=== PATIENT | female | born 1995 | race Caucasian/White ===

== ENCOUNTER 2017-01-16 02:02 | Emergency (ER) | payer MEDICAID, OTHER, SELFPAY ==
[2017-01-16 02:14] VITALS: BP 117/76
[2017-01-16] MEDS ORDERED: Ibuprofen 800 MG Tab PO ONE (02:34)
[2017-01-16] MEDS ORDERED: Amoxicillin/Clavulanate K 500-125 MG Tab PO ONE (02:35)
[2017-01-16] MEDS ORDERED: Acetaminophen/oxyCODONE 325-5 MG Tab PO ONE (02:35)
--- NOTE | 2017-01-16 02:38 | EDM.PDOC ---
ED HPI ENT - General Chief Complaint: ENT Problem Stated Complaint: FEVER SORE THROAT Time Seen by Provider: 01/16/17 02:34 Source of Information: Reports: Patient, Family (spouse) History Limitations: Reports: No limitations - History of Present Illness INITIAL COMMENTS - FREE TEXT/NARRATIVE: 21-year-old female presents the ED with acute onset of high fever generalized myalgia and severe sore throat over the last 24 hours. Denies cough or sputum production. Does have a headache. No nasal congestion. Very painful to swallow. Still has her tonsils. Symptom Onset Date: 01/15/17 Timing/Duration: Reports: Sudden onset (Illness started over the last 24 hours.) Severity: moderate Location: Reports: right Ear, left Ear (With swallowing), throat Quality: Reports: Burning, Sharp, Stabbing Improves with: Reports: None Worsens with: Reports: Other (Swallowing.) Associated Symptoms: Reports: headaches, fever/chills, malaise, loss of appetite. 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: Musculoskeletal History: Reports: Other (see below) Other Musculoskeletal History: herniated disc - Past Surgical History Musculoskeletal Surgical History: Reports: Other (see below) Other Musculoskeletal Surgeries/Procedures:: fracture of right femur, jasvir placed Social & Family History - Tobacco Use Smoking Status *Q: Current Every Day Smoker Years of Tobacco use: 6 Packs/Tins Daily: 1 Used Tobacco, but Quit: Yes Month Tobacco Last Used: November 2014 Second Hand Smoke Exposure: Yes - Caffeine Use Caffeine Use: Reports: Soda - Alcohol Use Days Per Week of Alcohol Use: 0 - Recreational Drug Use Recreational Drug Use: No - Living Situation & Occupation Living situation: Reports: Occupation: unemployed ED ROS ENT - Review of Systems Review Of Systems: See Below Constitutional: Reports: fever, chills, malaise, weakness, fatigue, decreased appetite. Denies: weight loss HEENT: Reports: Throat pain, Throat swelling Respiratory: Reports: No Symptoms Cardiovascular: Reports: No symptoms Endocrine: Reports: fatigue GI/Abdominal: Reports: No symptoms : Reports: no symptoms Musculoskeletal: Reports: no symptoms Skin: Reports: no symptoms Neurological: Reports: No Symptoms Psychiatric: Reports: No symptoms ED EXAM, ENT - Physical Exam Exam: See Below Exam Limited By: No limitations General Appearance: alert, moderate distress (Appears ill. She is very warm to palpation.) Eye Exam: bilateral eye: normal inspection, PERRL Ears: normal TMs Mouth/Throat: Pharyngeal erythema, Tonsillar erythema, Tonsillar exudates, Tonsillar swelling Head: atraumatic, normocephalic Neck: normal inspection, supple, non-tender, full range of motion, lymphadenopathy (L) (Mild submandibular), lymphadenopathy (R) (Mild submandibular) Respiratory/Chest: no respiratory distress, lungs clear, normal breath sounds, no accessory muscle use Cardiovascular: normal peripheral pulses, no edema, no gallop, no murmur GI/Abdominal: normal bowel sounds, soft, non tender, no organomegaly Extremities: normal inspection, normal range of motion, non-tender, no pedal edema Psychiatric: normal affect, normal mood Skin: Warm, Dry, Intact, Normal color, No rash Course - Vital Signs Last Recorded V/S: Last Vital Signs Temp 36.7 C 01/16/17 02:48 Pulse 89 01/16/17 02:10 Resp 16 01/16/17 02:10 BP 117/76 01/16/17 02:10 Pulse Ox 95 01/16/17 02:10 - Orders/Labs/Meds Meds: Medications Discontinued Medications Generic Name Dose Route Start Last Admin Trade Name Freq PRN Reason Stop Dose Admin Amoxicillin/Clavulanate Potassium 1 tab 01/16/17 02:35 01/16/17 02:48 Augmentin 500 Mg\125 Mg PO 01/16/17 02:36 1 tab ONETIME ONE Administration Ibuprofen 800 mg 01/16/17 02:34 01/16/17 02:48 Motrin PO 01/16/17 02:35 800 mg ONETIME ONE Administration Oxycodone/Acetaminophen 1 tab 01/16/17 02:35 01/16/17 02:48 Percocet 325-5 Mg PO 01/16/17 02:36 1 tab ONETIME ONE Administration - Radiology Interpretation Free Text/Narrative:: 21-year-old female presents the ED with acute onset of high fever 102.2 with severe sore throat for the last 24 hours. Examination reveals bilateral follicular tonsillitis. Mild submandibular adenopathy bilaterally. Treated with Augmentin 500 mg twice daily for 8 days. In the ED she was given Percocet 5 325 one tablet with Motrin 800 mg per oral for fever and pain relief. She is to continue Motrin 600 mg every 6 hours as needed for fever and throat pain relief. Departure - Departure Time of Disposition: 02:35 Disposition: Home, Self-Care 01 Condition: fair Clinical Impression: Tonsillitis Prescriptions: Amoxicillin/Potassium Clav [Augmentin 500-125 Tablet] 1 each PO BID #16 tablet Instructions: Tonsillitis, [id number] Referrals: Lakisha May LENS ASSORTER [Primary Care Provider] - Forms: ED Department Discharge Additional Instructions: Evaluation in the emergency room this morning in regards to high fever and severe sore throat that developed over the last 24 hours. Examination reveals E. to be running a fever. Ears are normal. Oropharynx shows tonsillitis with redness and swelling of both tonsils. Back of throat is also infected. Treated with Motrin 800 mg by mouth and one Percocet 5 325 mg tablet for pain relief and fever relief. Antibiotic is to be Augmentin 500 mg twice daily for the next 8 days with the first tablet provided in the ED. Continue ibuprofen or Motrin 600 mg every 6 hours for fever and throat pain relief. Expect improvement from antibiotic the next 36 hours. Plenty of fluids and diet as able.
== END 2017-01-16 02:57 | disposition home or self-care (01) ==
LOC: JD.ED 02:02
DX: J03.90 Acute tonsillitis, unspecified (principal); F17.210 Nicotine dependence, cigarettes, uncomplicated; Z98.890 Other specified postprocedural states
CPT/HCPCS: 99283; A9270

== ENCOUNTER 2017-01-18 08:22 | Emergency (ER) | payer MEDICAID, OTHER, SELFPAY ==
[2017-01-18 08:32] VITALS: BP 137/94
--- NOTE | 2017-01-18 08:37 | EDM.PDOC ---
ED HPI ENT - General Chief Complaint: ENT Problem Stated Complaint: SORE THROAT NOT BETTER Time Seen by Provider: 01/18/17 08:32 Source of Information: Reports: Patient History Limitations: Reports: No limitations - History of Present Illness INITIAL COMMENTS - FREE TEXT/NARRATIVE: 21-year-old female presents to the ED once again for review of sore throat and trouble swallowing. I had seen her to the ED tonight's ago and prescribed Augmentin 500 mg twice daily for 8 days. She did get the first tablet while she was in the emergency room. Diagnosed at that time was pharyngitis and tonsillitis. She reports that that's the only tablet she got. She was not able to afford the medication and is yet to poultry picker the prescription. She is still running a fever. Feeling worse instead of better of course. Feeling weak and dizzy. She also states her eyes are becoming mucousy and Sunday and requested shut this morning. She ended up going to the shower to get him to open up. Occurred over the last 12 hours. Symptom Onset Date: 01/18/17 Symptom Onset Time: 08:40 Timing/Duration: Reports: Day(s):, Gradual onset Severity: severe Location: Reports: throat Quality: Reports: Ache, Burning, Same as previous episode Improves with: Reports: None (Motrin helps a bit.) Worsens with: Reports: Other (Swallowing.) Associated Symptoms: Reports: malaise, other (Mild cough). Denies: headaches, seizure, shortness of breath, syncope, weakness, chest pain, cough, sputum, fever/chills, diaphoresis, loss of appetite, nausea/vomiting, rash Treatments MYCOLOGIST: Reports: NSAIDS (Motrin) - Related Data Allergies/ADRs: Allergies Allergy/AdvReac Type Severity Reaction Status Date / Time No Known Allergies Allergy Verified 01/18/17 08:31 Home Meds: Home Meds . 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: Musculoskeletal History: Reports: Other (see below) Other Musculoskeletal History: herniated disc - Past Surgical History Musculoskeletal Surgical History: Reports: Other (see below) Other Musculoskeletal Surgeries/Procedures:: fracture of right femur, jasvir placed Social & Family History - Tobacco Use Smoking Status *Q: Current Every Day Smoker Years of Tobacco use: 6 Packs/Tins Daily: 1 Used Tobacco, but Quit: Yes Month Tobacco Last Used: November 2014 Second Hand Smoke Exposure: Yes - Caffeine Use Caffeine Use: Reports: Soda - Alcohol Use Days Per Week of Alcohol Use: 0 - Recreational Drug Use Recreational Drug Use: No - Living Situation & Occupation Living situation: Reports: Occupation: unemployed ED ROS ENT - Review of Systems Review Of Systems: See Below Constitutional: Reports: fever, chills, malaise, weakness, fatigue, decreased appetite. Denies: weight loss HEENT: Reports: Eye discharge, Throat pain, Throat swelling Respiratory: Denies: Shortness of Breath, Wheezing, Pleuritic Chest Pain Cardiovascular: Reports: No symptoms Endocrine: Reports: no symptoms GI/Abdominal: Reports: No symptoms : Reports: no symptoms Musculoskeletal: Reports: no symptoms Skin: Reports: no symptoms Neurological: Reports: No Symptoms Psychiatric: Reports: No symptoms Hematologic/Lymphatic: Reports: no symptoms ED EXAM, ENT - Physical Exam Exam: See Below Exam Limited By: No limitations General Appearance: alert, WD/WN, moderate distress (Appears ill and is warm to palpation.) Eye Exam: bilateral eye: conjunctival injection (Moderate bilaterally with marked inflammation of the lower peripheral margins.) Ears: normal TMs Mouth/Throat: Pharyngeal erythema, Tonsillar erythema, Tonsillar swelling. No: Tonsillar exudates Head: atraumatic, normocephalic Neck: normal inspection, supple, non-tender, full range of motion, lymphadenopathy (L) (Moderate), lymphadenopathy (R) Respiratory/Chest: no respiratory distress (Minimum), lungs clear, normal breath sounds, no accessory muscle use Cardiovascular: normal peripheral pulses, regular rate, rhythm, no edema, no murmur GI/Abdominal: normal bowel sounds, soft, non tender, no organomegaly Extremities: normal inspection, normal range of motion, non-tender, no pedal edema Neurological: alert, oriented, CN II-XII intact, normal cognition, normal gait Psychiatric: normal affect, normal mood Skin: Warm, Dry, Intact, Normal color, No rash Course - Vital Signs Last Recorded V/S: Last Vital Signs Temp 36.9 C 01/18/17 08:27 Pulse 63 01/18/17 08:27 Resp 18 01/18/17 08:27 BP 137/94 H 01/18/17 08:27 Pulse Ox 99 01/18/17 08:27 - Orders/Labs/Meds Orders: Active Orders 24 hr Category Date Time Status CULTURE STREP A CONFIRMATION [RM] Stat Lab 01/18/17 08:35 Results Rapid Strep w/culture conf [STREP SCRN A RAPID W CULT Lab 01/18/17 08:35 Results CONF] [RM] Stat Dextrose 5%-0.9% NaCl [Dextrose 5%-Normal Saline] 1,000 Med 01/18/17 08:45 Active ml IV ASDIRECTED Ketorolac [Toradol] Med 01/18/17 09:00 Active 30 mg IVPUSH ONETIME cefTRIAXone [Rocephin] 2 gm Med 01/18/17 08:45 Active Sodium Chloride 0.9% [Normal Saline] 100 ml IV Q24H Medication Orders Dextrose/Sodium Chloride (Dextrose 5%-Normal Saline) 1,000 mls @ 999 mls/hr IV ASDIRECTED PAULA Last Infusion: 01/18/17 09:27 Dose: 999 mls/hr Admin: 01/18/17 09:02 Dose: 500 mls/hr Ceftriaxone Sodium 2 gm/ (Sodium Chloride) 100 mls @ 200 mls/hr IV Q24H PAULA Last Admin: 01/18/17 09:03 Dose: 200 mls/hr Ketorolac Tromethamine (Toradol) 30 mg IVPUSH ONETIME PAULA Last Admin: 01/18/17 09:06 Dose: 30 mg Labs: Laboratory Tests 01/18/17 01/18/17 01/18/17 Range/Units 08:50 08:50 08:50 WBC 14.48 H (3.98-10.04) K/mm3 RBC 5.38 H (3.98-5.22) M/mm3 Hgb 15.2 (11.2-15.7) gm/L Hct 45.3 H (34.1-44.9) % MCV 84.2 (79.4-94.8) fl MCH 28.3 (25.6-32.2) pg MCHC 33.6 (32.2-35.5) g/dl RDW Std Deviation 41.6 (36.4-46.3) fL Plt Count 256 (182-369) K/mm3 MPV 10.8 (9.4-12.3) fl Neutrophils % (Manual) 68 H (40-60) % Band Neutrophils % 0 (0-10) % Lymphocytes % (Manual) 29 (20-40) % Atypical Lymphs % 0 % Monocytes % (Manual) 1 L (2-10) % Eosinophils % (Manual) 2 (0.7-5.8) % Basophils % (Manual) 0 L (0.1-1.2) Platelet Estimate Adequate RBC Morph Comment Normal Sodium 141 (136-145) mEq/L Potassium 4.0 (3.5-5.1) mEq/L Chloride 106 (98-107) mEq/L Carbon Dioxide 25 (21-32) mEq/L Anion Gap 14.0 (5-15) BUN 11 (7-18) mg/dL Creatinine 0.9 (0.55-1.02) mg/dL Est Cr Clr Drug Dosing TNP Estimated GFR (MDRD) > 60 (>60) mL/min BUN/Creatinine Ratio 12.2 L (14-18) Glucose 104 (74-106) mg/dL Calcium 8.8 (8.5-10.1) mg/dL Total Bilirubin 0.6 (0.2-1.0) mg/dL AST 13 L (15-37) U/L ALT 20 (14-59) U/L Alkaline Phosphatase 106 (46-116) U/L C-Reactive Protein 5.5 H* (<1.0) mg/dL Total Protein 7.6 (6.4-8.2) g/dl Albumin 3.6 (3.4-5.0) g/dl Globulin 4.0 gm/dL Albumin/Globulin Ratio 0.9 L (1-2) Meds: Medications Generic Name Dose Route Start Last Admin Trade Name Freq PRN Reason Stop Dose Admin Dextrose/Sodium Chloride 1,000 mls @ 999 mls/hr 01/18/17 08:45 01/18/17 09:27 Dextrose 5%-Normal Saline IV 999 mls/hr ASDIRECTED PAULA Infusion Ceftriaxone Sodium 2 gm/ 100 mls @ 200 mls/hr 01/18/17 08:45 01/18/17 09:03 Sodium Chloride IV 200 mls/hr Q24H PAULA Administration Ketorolac Tromethamine 30 mg 01/18/17 09:00 01/18/17 09:06 Toradol IVPUSH 30 mg ONETIME PAULA Administration Discontinued Medications Generic Name Dose Route Start Last Admin Trade Name Freq PRN Reason Stop Dose Admin Gentamicin Sulfate 5 ml 01/18/17 09:03 01/18/17 09:25 Garamycin 0.3% Ophth Soln EYEBOTH 01/18/17 09:04 1 dose ONETIME ONE Administration Hydromorphone HCl 0.5 mg 01/18/17 08:49 Dilaudid IVPUSH 01/18/17 08:50 ONETIME ONE Ondansetron HCl 4 mg 01/18/17 08:50 01/18/17 09:08 Zofran IVPUSH 01/18/17 08:51 4 mg ONETIME ONE Administration - Radiology Interpretation Free Text/Narrative:: 21-year-old female presents to the ED once again for review of sore throat that developed about 3 days ago. I had seen her through the ED 2 days ago and diagnosed with tonsillitis. She had been started on augment Augmentin 500 mg tablet which we gave her the ED. However she reports this was unable to poultry picker the prescription since that time. She does of course is not getting better. Associated bacterial conjunctivitis. Will start her on gentamicin eyedrops 2 drops to each eye 4 times daily for 3 days. Plan will be to have routine lab work done in the ED rapid strep Monospot given 2 g of Rocephin intravenously CBC CMP. - Re-Assessments/Exams Free Text/Narrative Re-Assessment/Exam: 01/18/17 09:33 total white count is 14.48 with differential pending. Hemoglobin is 15.2 hematocrit 45.3, platelets are 256,000. Chemistry was completely normal. Rapid strep was negative but it might be negative because of antibiotics previously taken antibiotics. Will await the differential. 01/18/17 09:46 CRP came back at 5.5. Patient has a prescription for the Augmentin tablets 500 twice a day for 8 days which are prescribed 2 days ago and she will fill this tomorrow apparently gets paid tomorrow the available film medication. Departure - Departure Time of Disposition: 09:43 Disposition: Home, Self-Care 01 Clinical Impression: Tonsillitis, Bacterial conjunctivitis of both eyes Instructions: Tonsillitis, Bacterial Conjunctivitis Referrals: Lakisha May HOSPITALIST MEDICAL DIRECTOR [Primary Care Provider] - Forms: ED Department Discharge Additional Instructions: Evaluation in the emergency department today in regards to persistent upper respiratory tract symptoms due to inability to fill prescription for antibiotic medication provided 2 days ago. Laboratory did reveal a markedly elevated white count at 14,450 with bacterial infection. Your liver treated in the emergency room for infection with Rocephin 2 g given intravenously which will last for the next 24 hours. By history we'll be able to poultry picker her prescription for Augmentin 500 mg tablets twice daily tomorrow. Continue Motrin 600 mg every 6 hours for fever and pain relief. Also identified bacterial conjunctivitis in both eyes. He is gentamicin eyedrops applied to the ED today 2 drops each eye 4 times daily while awake for the next 3 days to clear up infection. - My Orders Last 24 Hours: My Active Orders 01/18/17 08:35 CULTURE STREP A CONFIRMATION [] Stat Rapid Strep w/culture conf [STREP SCRN A RAPID W CULT CONF] [] Stat 01/18/17 08:45 Dextrose 5%-0.9% NaCl [Dextrose 5%-Normal Saline] 1,000 ml IV ASDIRECTED cefTRIAXone [Rocephin] 2 gm Sodium Chloride 0.9% [Normal Saline] 100 ml IV Q24H 01/18/17 09:00 Ketorolac [Toradol] 30 mg IVPUSH ONETIME - Assessment/Plan Last 24 Hours: My Active Orders 01/18/17 08:35 CULTURE STREP A CONFIRMATION [] Stat Rapid Strep w/culture conf [STREP SCRN A RAPID W CULT CONF] [] Stat 01/18/17 08:45 Dextrose 5%-0.9% NaCl [Dextrose 5%-Normal Saline] 1,000 ml IV ASDIRECTED cefTRIAXone [Rocephin] 2 gm Sodium Chloride 0.9% [Normal Saline] 100 ml IV Q24H 01/18/17 09:00 Ketorolac [Toradol] 30 mg IVPUSH ONETIME
[2017-01-18] MEDS ORDERED: Dextrose 5%-0.9% NaCl 1,000 ML IV SCH (08:45)
[2017-01-18] MEDS ORDERED: cefTRIAXone 2 GM in Sodium Chloride 0.9% 100 ML IV SCH (08:45)
[2017-01-18] MEDS ORDERED: HYDROmorphone 0.5 MG/0.5 ML Syringe IVPUSH ONE (08:49)
[2017-01-18] MEDS ORDERED: Ondansetron 4 MG/2 ML SDV IVPUSH ONE (08:50)
[2017-01-18] MEDS ORDERED: Ketorolac 30 MG/ML SDV IVPUSH SCH (09:00)
[2017-01-18] MEDS ORDERED: Gentamicin 0.3% Ophth Soln 15 ML Bottle EYEBOTH ONE (09:03)
== END 2017-01-18 10:00 | disposition home or self-care (01) ==
LOC: JD.ED 08:22
DX: J03.90 Acute tonsillitis, unspecified (principal); H10.89 Other conjunctivitis; F17.210 Nicotine dependence, cigarettes, uncomplicated; Z98.890 Other specified postprocedural states
CPT/HCPCS: 36415; 80053; 85025; 86140; 87081; 87430; 96365; 96375; 99283; A9270; J0696; J1885; J2405; J7030; J7042; 99284

== ENCOUNTER 2017-05-10 12:45 | Emergency (ER) | payer SELFPAY ==
[2017-05-10 12:56] VITALS: BP 134/75
--- NOTE | 2017-05-10 13:19 | EDM.PDOC ---
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 She reports that her periods are usually regular and come on the 18th or 19th of every month. She says for the past two months her and her significant other have been trying to conceive. Her periods have now become irregular. She had her period around 04/03 but then had bleeding again around 2 weeks later. Her period starting this morning and she is 6 days late. She is wondering if she could be but has not taken a test because she feels it's too early. She had pelvic cramping prior to onset of bleeding. She took Tylenol prior to arrival. No fever, chills, sweats, or urinary symptoms. Abdomen Pain Score (Numeric/FACES): 4 - Related Data Allergies Allergy/AdvReac Type Severity Reaction Status Date / Time No Known Allergies Allergy Verified 05/10/17 12:55 Home Meds: Home Meds . 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: Musculoskeletal History: Reports: Other (See Below) Other Musculoskeletal History: herniated disc - Past Surgical History Musculoskeletal Surgical History: Reports: Other (See Below) Social & Family History - Family History Family Medical History: Noncontributory - Tobacco Use Smoking Status *Q: Never Smoker Years of Tobacco use: 6 Packs/Tins Daily: 1 Used Tobacco, but Quit: Yes Month Tobacco Last Used: November 2014 Second Hand Smoke Exposure: Yes - Caffeine Use Caffeine Use: Reports: Soda - Alcohol Use Days Per Week of Alcohol Use: 0 - Recreational Drug Use Recreational Drug Use: No - Living Situation & Occupation Living situation: Reports: Occupation: Unemployed ED ROS GENERAL - Review of Systems Review Of Systems: See Below Constitutional: Reports: No Symptoms. Denies: Fever, Chills, Diaphoresis Respiratory: Reports: No Symptoms. Denies: Shortness of Breath Cardiovascular: Reports: No Symptoms. Denies: Chest Pain GI/Abdominal: Reports: No Symptoms. Denies: Nausea, Vomiting : Reports: Irregular Menses. Denies: Flank Pain, Pain, Urgency ED EXAM, RENAL/ - Physical Exam Exam: See Below Exam Limited By: No Limitations General Appearance: Alert, No Apparent Distress, Obese Respiratory/Chest: No Respiratory Distress, Lungs Clear, Normal Breath Sounds Cardiovascular: Regular Rate, Rhythm GI/Abdominal: Normal Bowel Sounds, Soft, Non-Tender (Female) Exam: Other (no pelvic tenderness on palpation. no rebound rigidity , or guarding. speculum and bimanual exam deferred ) Back Exam: Normal Inspection, Full Range of Motion. No: CVA Tenderness (L), CVA Tenderness (R) Course - Vital Signs Last Recorded V/S: Last Vital Signs Temp 98.8 F 05/10/17 12:53 Pulse 75 05/10/17 12:53 Resp 18 05/10/17 12:53 BP 134/75 05/10/17 12:53 Pulse Ox 100 05/10/17 12:53 - Orders/Labs/Meds Labs: Laboratory Tests 05/10/17 Range/Units 13:25 Urine HCG, Qual Negative (NEGATIVE) - Re-Assessments/Exams Free Text/Narrative Re-Assessment/Exam: Hcg is negative. Will refer to Poly Cummings for irregular periods. Departure - Departure Time of Disposition: 14:12 Disposition: Home, Self-Care 01 Condition: Good Clinical Impression: Irregular periods - Discharge Information Referrals: Poly Cummings, LOGISTICS ASSOCIATE [Nurse Practitioner] - Forms: ED Department Discharge Additional Instructions: Your test today was negative. Call the clinic to schedule an appointment with Dr. Harmon or his Nurse Practitioner Poly Cummings regarding your irregular periods. Return to ER as needed
== END 2017-05-10 14:23 | disposition home or self-care (01) ==
LOC: JD.ED 12:45
DX: N92.6 Irregular menstruation, unspecified (principal)
CPT/HCPCS: 81025; 99282; 99284

== ENCOUNTER 2018-02-06 18:45 | Emergency (ER) | payer BC | END 2018-02-06 18:59 | disposition left against medical advice (07) | LOC: JD.ED 18:45 | DX: Z53.21 Procedure and treatment not carried out due to patient leaving prior to being seen by health care provider (principal) ==

== ENCOUNTER 2018-04-30 15:22 | Emergency (ER) | payer BC ==
[2018-04-30 15:35] VITALS: BP 174/90
[2018-04-30] MEDS ORDERED: Acetaminophen 325 MG Tab PO ONE (16:43)
--- NOTE | 2018-04-30 17:35 | EDM.PDOC ---
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 Patient reports she is 5 weeks . Last menstrual period was March 28, 2018. She states her have been trying to become . She is currently on Clomid for infertility and is supposed to start with sounds like progesterone twice a day when she has been found to be . She saw Dr. Faustino evans yesterday and had hCG drawn. Review of records show that her hCG yesterday was 8. She reports today she first appreciated some pinkness when she wiped. She states it has gotten worse throughout the day and she is appreciated bleeding. She has not utilized a pad for the bleeding. She states she is not passing clots. She denies any lightheadedness, dizziness, syncope, dysuria or any back pain. She reports some lower abdominal cramping which she states feels like menstrual cramps. She also reports a headache and strong urine odor. Review of records show her blood type is O+. 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: Musculoskeletal History: Reports: Other (See Below) Other Musculoskeletal History: herniated disc - Past Surgical History Musculoskeletal Surgical History: Reports: Other (See Below) Social & Family History - Family History Family Medical History: Noncontributory - Tobacco Use Smoking Status *Q: Current Every Day Smoker Years of Tobacco use: 5 Packs/Tins Daily: 0.5 - Caffeine Use Caffeine Use: Reports: Soda - Recreational Drug Use Recreational Drug Use: No - Living Situation & Occupation Living situation: Reports: Occupation: Unemployed ED ROS GENERAL - Review of Systems Review Of Systems: See Below Cardiovascular: Denies: Lightheadedness GI/Abdominal: Reports: Abdominal Pain (lower abdominal pain and cramping) : Reports: Other (reports strong urine odor). Denies: Dysuria Musculoskeletal: Denies: Back Pain Neurological: Reports: Headache. Denies: Dizziness, Syncope ED EXAM - Physical Exam Exam: See Below Exam Limited By: No Limitations General Appearance: Alert, WD/WN, No Apparent Distress, Obese Respiratory/Chest: No Respiratory Distress, Lungs Clear, Normal Breath Sounds Cardiovascular: Normal Peripheral Pulses, Regular Rate, Rhythm, No Murmur GI/Abdominal Exam: Normal Bowel Sounds, Soft, Non-Tender Neurological: Alert, Oriented, Normal Cognition Psychiatric: Normal Affect, Normal Mood Skin Exam: Warm, Dry, Normal Color Course - Vital Signs Last Recorded V/S: Last Vital Signs Temp 97.3 F 04/30/18 15:31 Pulse 65 04/30/18 15:31 Resp 16 04/30/18 15:31 BP 174/90 H 04/30/18 15:31 Pulse Ox 99 04/30/18 15:31 - Orders/Labs/Meds Orders: Active Orders 24 hr Category Date Time Status CULTURE URINE [RM] Stat Lab 04/30/18 16:25 Received UA W/MICROSCOPIC [URIN] Stat Lab 04/30/18 16:25 Ordered Labs: Laboratory Tests 04/30/18 04/30/18 04/30/18 Range/Units 16:07 16:07 16:25 WBC 10.63 H (3.98-10.04) K/mm3 RBC 5.03 (3.98-5.22) M/mm3 Hgb 14.6 (11.2-15.7) gm/L Hct 43.2 (34.1-44.9) % MCV 85.9 (79.4-94.8) fl MCH 29.0 (25.6-32.2) pg MCHC 33.8 (32.2-35.5) g/dl RDW Std Deviation 41.5 (36.4-46.3) fL Plt Count 266 (182-369) K/mm3 MPV 10.1 (9.4-12.3) fl Neut % (Auto) 62.6 (34.0-71.1) % Lymph % (Auto) 28.3 (19.3-51.7) % Levy % (Auto) 7.1 (4.7-12.5) % Eos % (Auto) 1.3 (0.7-5.8) Baso % (Auto) 0.4 (0.1-1.2) % Neut # (Auto) 6.66 H (1.56-6.13) K/mm3 Lymph # (Auto) 3.01 (1.18-3.74) K/mm3 Levy # (Auto) 0.75 H (0.24-0.36) K/mm3 Eos # (Auto) 0.14 (0.04-0.36) K/mm3 Baso # (Auto) 0.04 (0.01-0.08) K/mm3 HCG, Quant 14.0 mIU/mL Urine Color Lotus H (Yellow) Urine Appearance Cloudy H (Clear) Urine pH 6.0 (5.0-8.0) Ur Specific [place] > or = 1.030 (1.005-1.030) Urine Protein 2+ H (Negative) Urine Glucose (UA) Negative (Negative) Urine Ketones Negative (Negative) Urine Occult Blood 3+ H (Negative) Urine Nitrite Negative (Negative) Urine Bilirubin Negative (Negative) Urine Urobilinogen 0.2 (0.2-1.0) Ur Leukocyte Esterase 1+ H (Negative) Urine RBC >100 H (0-5) /hpf Urine WBC 5-10 H (0-5) /hpf Ur Epithelial Cells 5-10 H (0-5) /hpf Urine Bacteria Moderate H (FEW) /hpf Urine Mucus Not seen (FEW) /hpf Meds: Medications Discontinued Medications Generic Name Dose Route Start Last Admin Trade Name Morisq PRN Reason Stop Dose Admin Acetaminophen 975 mg 04/30/18 16:43 04/30/18 17:00 Tylenol PO 04/30/18 16:44 975 mg NOW ONE Administration - Re-Assessments/Exams Free Text/Narrative Re-Assessment/Exam: 04/30/18 17:31 Reviewed the labs with the patient. She is blood type O+. Her Quant has increased from 8 yesterday to 14 today. At this point I am recommending that she continue as if she is as her Quant is increasing. To early to see anything on ultrasound. Will treat for UTI as she does have 1+ leuks and moderate bacteria seen on microscopy. Recommend follow-up with Dr. Harmon this week. Discharge instructions as documented. Departure - Departure Time of Disposition: 17:32 Disposition: Home, Self-Care 01 Condition: Fair Clinical Impression: UTI, Urinary tract infectious disease, Bleeding in early - Discharge Information *PRESCRIPTION DRUG MONITORING PROGRAM REVIEWED*: No *COPY OF PRESCRIPTION DRUG MONITORING REPORT IN PATIENT AGUUST: No Prescriptions: Cephalexin [Keflex] 500 mg PO BID #10 capsule Instructions: First Trimester of , Ngwi-wo-Xirp, Urinary Tract Infection, Adult, Opry-um-Envi Referrals: Sb Harmon MD [Primary Care Provider] - Forms: ED Department Discharge Additional Instructions: your HCG Quant has increased from 8 yesterday to 14 today. Recommend that you continue taking prenatals and avoid NSAIDs and alcohol. May take Tylenol as needed for discomfort. make Sure you're drinking plenty of fluids. Take the Keflex 1 tab twice a day for 5 days Pelvic rest. No intercourse until cleared by Dr. Harmon. Follow-up with Dr. Harmon this week. Please return to the ED if your symptoms change or worsen. - My Orders Last 24 Hours: My Active Orders 04/30/18 16:25 CULTURE URINE [RM] Stat UA W/MICROSCOPIC [URIN] Stat - Assessment/Plan Last 24 Hours: My Active Orders 04/30/18 16:25 CULTURE URINE [RM] Stat UA W/MICROSCOPIC [URIN] Stat
== END 2018-04-30 17:50 | disposition home or self-care (01) ==
LOC: JD.ED 15:22
DX: O20.9 Hemorrhage in early pregnancy, unspecified (principal); O23.41 Unspecified infection of urinary tract in pregnancy, first trimester; O99.331 Smoking (tobacco) complicating pregnancy, first trimester; F17.210 Nicotine dependence, cigarettes, uncomplicated; Z3A.01 Less than 8 weeks gestation of pregnancy
CPT/HCPCS: 36415; 81001; 84702; 85025; 87086; 87088; 87186; 99284; A9270; 99283

== ENCOUNTER 2018-05-01 13:15 | Emergency (ER) | payer BC ==
[2018-05-01] MEDS ORDERED: HYDROmorphone 0.5 MG/0.5 ML SYRINGE IVPUSH ONE ×2 (14:04→16:04)
[2018-05-01] MEDS ORDERED: Sodium Chloride 0.9% 10 ML Syringe FLUSH PRN (14:04)
[2018-05-01] MEDS ORDERED: Ondansetron 4 MG/2 ML SDV IVPUSH ONE (14:04)
[2018-05-01] MEDS ORDERED: Sodium Chloride 0.9% 1,000 ML IV ONE (14:04)
--- NOTE | 2018-05-01 14:16 | EDM.PDOC ---
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 She states she's approximately 5 weeks which was recently diagnosed this past Sunday. She was seen in the ED yesterday due to vaginal bleeding. She was diagnosed with the UTI. Placed on Keflex. Today she awoke with increased bleeding and cramps. This occurred at 7:30 this morning. Patient has been using washcloths and notes there has been heavy amount of blood to the washcloths but are not saturated. She notes every time she stands up there is a gush of blood. No tissue noted. She states it is similar to her menstrual cycle. Her last menstrual cycle was March 28. This is her second . She has 1 child. Her primary FOLEY ARTIST provider is Dr. Harmon. There is no fever no chills. She has slight nausea. No shortness of breath, chest pain, diarrhea, blood in her stool, or dysuria. She has been taking the Keflex as prescribed. She does smoke half pack per day. No alcohol or recreational drug use. She is only on vitamins. 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: Musculoskeletal History: Reports: Other (See Below) Other Musculoskeletal History: herniated disc - Past Surgical History Musculoskeletal Surgical History: Reports: Other (See Below) Social & Family History - Family History Family Medical History: Noncontributory - Tobacco Use Smoking Status *Q: Current Every Day Smoker Years of Tobacco use: 7 Packs/Tins Daily: 0.5 - Caffeine Use Caffeine Use: Reports: Soda - Recreational Drug Use Recreational Drug Use: No - Living Situation & Occupation Living situation: Reports: Occupation: Unemployed ED ROS GENERAL - Review of Systems Review Of Systems: See Below Constitutional: Reports: No Symptoms Respiratory: Reports: No Symptoms Cardiovascular: Reports: No Symptoms GI/Abdominal: Reports: No Symptoms : Reports: No Symptoms Musculoskeletal: Reports: No Symptoms Skin: Reports: No Symptoms Neurological: Reports: No Symptoms ED EXAM - Physical Exam Exam: See Below Exam Limited By: No Limitations General Appearance: Alert, WD/WN, No Apparent Distress Ears: Hearing Grossly Normal Nose: Normal Inspection Throat/Mouth: Normal Inspection, Normal Oropharynx, Normal Voice, No Airway Compromise Neck: Normal Inspection, Supple Respiratory/Chest: No Respiratory Distress, Lungs Clear, Normal Breath Sounds, No Accessory Muscle Use Cardiovascular: Normal Peripheral Pulses, Regular Rate, Rhythm GI/Abdominal Exam: Normal Bowel Sounds, Soft, Non-Tender, No Organomegaly, No Distention (Female) Exam: Normal Bimanual Exam, Cervical Dilatation (appears to be minimal open. ), Cervical Discharge (blood), Cervical Fluid, Vaginal Bleeding. No: Cervical Lesions, Cervix Motion Tenderness, Products of Conception, Tissue Present in Cervix/Vagina, Vaginal Discharge, Vaginal Lesions, Vaginal Tears Back Exam: Normal Inspection Extremities: Normal Inspection Neurological: Alert, Oriented, CN II-XII Intact, Normal Cognition, No Motor/ Sensory Deficits Psychiatric: Normal Affect, Normal Mood Skin Exam: Warm, Dry, Intact, Normal Color Course - Vital Signs Last Recorded V/S: Last Vital Signs Temp 97.5 F 05/01/18 13:37 Pulse 63 05/01/18 16:20 Resp 17 05/01/18 16:20 BP 121/79 05/01/18 16:20 Pulse Ox 98 05/01/18 16:20 - Orders/Labs/Meds Orders: Active Orders 24 hr Category Date Time Status Peripheral IV Care [RC] . DIRECTED Care 05/01/18 14:04 Active CULTURE URINE [RM] Stat Lab 05/01/18 14:16 Results Peripheral IV Insertion Adult [OM.PC] Routine Oth 05/01/18 14:04 Ordered Labs: Laboratory Tests 05/01/18 05/01/18 05/01/18 Range/Units 14:21 14:38 14:38 WBC 11.07 H (3.98-10.04) K/mm3 RBC 5.44 H (3.98-5.22) M/mm3 Hgb 15.6 (11.2-15.7) gm/L Hct 46.2 H (34.1-44.9) % MCV 84.9 (79.4-94.8) fl MCH 28.7 (25.6-32.2) pg MCHC 33.8 (32.2-35.5) g/dl RDW Std Deviation 41.4 (36.4-46.3) fL Plt Count 284 (182-369) K/mm3 MPV 10.4 (9.4-12.3) fl Neutrophils % (Manual) 74 H (40-60) % Band Neutrophils % 0 (0-10) % Lymphocytes % (Manual) 23 (20-40) % Atypical Lymphs % 0 % Monocytes % (Manual) 3 (2-10) % Eosinophils % (Manual) 0 L (0.7-5.8) % Basophils % (Manual) 0 L (0.1-1.2) Platelet Estimate Adequate RBC Morph Comment Normal Sodium 141 (136-145) mEq/L Potassium 3.8 (3.5-5.1) mEq/L Chloride 107 (98-107) mEq/L Carbon Dioxide 23 (21-32) mEq/L Anion Gap 14.8 (5-15) BUN 10 (7-18) mg/dL Creatinine 0.8 (0.55-1.02) mg/dL Est Cr Clr Drug Dosing 115.28 mL/min Estimated GFR (MDRD) > 60 (>60) mL/min BUN/Creatinine Ratio 12.5 L (14-18) Glucose 109 H (74-106) mg/dL Calcium 8.6 (8.5-10.1) mg/dL Total Bilirubin 0.4 (0.2-1.0) mg/dL AST 12 L (15-37) U/L ALT 18 (14-59) U/L Alkaline Phosphatase 88 (46-116) U/L C-Reactive Protein 1.1 H* (<1.0) mg/dL Total Protein 7.4 (6.4-8.2) g/dl Albumin 3.6 (3.4-5.0) g/dl Globulin 3.8 gm/dL Albumin/Globulin Ratio 1.0 (1-2) HCG, Quant mIU/mL Urine Color Yellow (Yellow) Urine Appearance Clear (Clear) Urine pH 6.0 (5.0-8.0) Ur Specific [place] 1.025 (1.005-1.030) Urine Protein Negative (Negative) Urine Glucose (UA) Negative (Negative) Urine Ketones Negative (Negative) Urine Occult Blood Negative (Negative) Urine Nitrite Negative (Negative) Urine Bilirubin Negative (Negative) Urine Urobilinogen 0.2 (0.2-1.0) Ur Leukocyte Esterase Trace H (Negative) Urine RBC 0-5 (0-5) /hpf Urine WBC 5-10 H (0-5) /hpf Ur Epithelial Cells 0-5 (0-5) /hpf Urine Bacteria Rare (FEW) /hpf Urine Mucus Not seen (FEW) /hpf 05/01/18 Range/Units 14:38 WBC (3.98-10.04) K/mm3 RBC (3.98-5.22) M/mm3 Hgb (11.2-15.7) gm/L Hct (34.1-44.9) % MCV (79.4-94.8) fl MCH (25.6-32.2) pg MCHC (32.2-35.5) g/dl RDW Std Deviation (36.4-46.3) fL Plt Count (182-369) K/mm3 MPV (9.4-12.3) fl Neutrophils % (Manual) (40-60) % Band Neutrophils % (0-10) % Lymphocytes % (Manual) (20-40) % Atypical Lymphs % % Monocytes % (Manual) (2-10) % Eosinophils % (Manual) (0.7-5.8) % Basophils % (Manual) (0.1-1.2) Platelet Estimate RBC Morph Comment Sodium (136-145) mEq/L Potassium (3.5-5.1) mEq/L Chloride (98-107) mEq/L Carbon Dioxide (21-32) mEq/L Anion Gap (5-15) BUN (7-18) mg/dL Creatinine (0.55-1.02) mg/dL Est Cr Clr Drug Dosing mL/min Estimated GFR (MDRD) (>60) mL/min BUN/Creatinine Ratio (14-18) Glucose (74-106) mg/dL Calcium (8.5-10.1) mg/dL Total Bilirubin (0.2-1.0) mg/dL AST (15-37) U/L ALT (14-59) U/L Alkaline Phosphatase (46-116) U/L C-Reactive Protein (<1.0) mg/dL Total Protein (6.4-8.2) g/dl Albumin (3.4-5.0) g/dl Globulin gm/dL Albumin/Globulin Ratio (1-2) HCG, Quant 21.0 mIU/mL Urine Color (Yellow) Urine Appearance (Clear) Urine pH (5.0-8.0) Ur Specific [place] (1.005-1.030) Urine Protein (Negative) Urine Glucose (UA) (Negative) Urine Ketones (Negative) Urine Occult Blood (Negative) Urine Nitrite (Negative) Urine Bilirubin (Negative) Urine Urobilinogen (0.2-1.0) Ur Leukocyte Esterase (Negative) Urine RBC (0-5) /hpf Urine WBC (0-5) /hpf Ur Epithelial Cells (0-5) /hpf Urine Bacteria (FEW) /hpf Urine Mucus (FEW) /hpf Meds: Medications Discontinued Medications Generic Name Dose Route Start Last Admin Trade Name Freq PRN Reason Stop Dose Admin Hydromorphone HCl 0.5 mg 05/01/18 14:04 05/01/18 14:42 Dilaudid IVPUSH 05/01/18 14:05 0.5 mg ONETIME ONE Administration Hydromorphone HCl 0.5 mg 05/01/18 16:04 05/01/18 16:10 Dilaudid IVPUSH 05/01/18 16:05 0.5 mg ONETIME ONE Administration Sodium Chloride 1,000 mls @ 999 mls/hr 05/01/18 14:04 05/01/18 14:39 Normal Saline IV 05/01/18 15:04 999 mls/hr ONETIME ONE Administration Ondansetron HCl 4 mg 05/01/18 14:04 05/01/18 14:40 Zofran IVPUSH 05/01/18 14:05 4 mg ONETIME ONE Administration Sodium Chloride 10 ml 05/01/18 14:04 05/01/18 14:40 Saline Flush FLUSH 10 ml ASDIRECTED PRN Administration Keep Vein Open - Re-Assessments/Exams Free Text/Narrative Re-Assessment/Exam: IV established with normal saline, Dilaudid 0.5 mg IVP, and Zofran 4 mg IVP. Initial labs and studies include: CBC, chem 14, CRP, UA, and quantitative hCG. 05/01/18 14:15 Vaginal exam performed with questionable dilatation of the cervix with minimal blood present. Few blood clots present. No other concerning findings. Labs reviewed: White blood cell count 11.07, hemoglobin 15.6, platelet count 284. She panel was essentially normal. CRP mildly elevated at 1.1. HCG quantitative 21. This is increased from 14 yesterday. UA positive for leukocyte Estrace and urine wbc's of 5-10. 1550 I did speak to Dr. Orr, she states this may be related to normal first trimester bleeding or threatened miscarriage. Does not suggest obtaining ultrasound at this point. Recommends follow-up with Dr. Harmon this coming week for reevaluation. Agreed patient has a UTI and recommended continued therapy. Patient is having additional pain. I have ordered Dilaudid 0.5 mg IVP. Discussed results of labs and conversation with Dr. Orr. Patient agrees with plan.The patient remained hemodynamically stable while under my care in the E.D. I discussed the concerning symptoms for which to returnto the E.D. with the patient/family. The patient/family verbalized understanding. All questions were answered. Departure - Departure Time of Disposition: 16:05 Disposition: Home, Self-Care 01 Condition: Good Clinical Impression: Threatened in early , Bleeding in early , UTI, Urinary tract infectious disease - Discharge Information Prescriptions: Acetaminophen/HYDROcodone [[place] 325-5 MG] 1 tab PO Q6H PRN #20 tablet PRN Reason: Pain (Severe 7-10) Ondansetron [Zofran ODT] 4 mg PO Q6H PRN #15 tab.dis PRN Reason: Nausea Instructions: Threatened Miscarriage, Vaginal Bleeding During , First Trimester, Urinary Tract Infection, Adult, Urine Culture and Sensitivity Testing Referrals: Sb Harmon MD [Primary Care Provider] - Forms: ED Department Discharge, ED Return to Work/School Form Additional Instructions: Take the full course of Keflex as prescribed for UTI. For nausea take Zofran 1 tab every 6 hours as needed. Push the fluids. For severe pain take [place] one tab every [address] hours[address] No [address] this evening since receiving a sedative medication. Do not drive while taking the [place]. Make an appointment with Dr. Harmon for this coming week to be reevaluated. Return to the ED if you experience any new or worsening symptoms as discussed. - My Orders Last 24 Hours: My Active Orders 05/01/18 14:04 Peripheral IV Care [RC] . DIRECTED Peripheral IV Insertion Adult [OM.PC] Routine 05/01/18 14:16 CULTURE URINE [RM] Stat - Assessment/Plan Last 24 Hours: My Active Orders 05/01/18 14:04 Peripheral IV Care [RC] . DIRECTED Peripheral IV Insertion Adult [OM.PC] Routine 05/01/18 14:16 CULTURE URINE [RM] Stat
[2018-05-01 17:04] VITALS: BP 121/79
== END 2018-05-01 16:22 | disposition home or self-care (01) ==
LOC: JD.ED 13:15
DX: O20.0 Threatened abortion (principal); O23.41 Unspecified infection of urinary tract in pregnancy, first trimester; Z3A.01 Less than 8 weeks gestation of pregnancy; O99.331 Smoking (tobacco) complicating pregnancy, first trimester; F17.210 Nicotine dependence, cigarettes, uncomplicated
CPT/HCPCS: 36415; 80053; 81001; 84702; 85007; 85027; 86140; 87086; 96361; 96374; 96375; 96376; 99284; J1170; J2405; J7040; J7050

== ENCOUNTER 2021-08-02 15:55 | Emergency (ER) | payer BC, MEDICAID ==
[2021-08-02] MEDS ORDERED: Sodium Chloride 0.9% 10 ML Syringe FLUSH PRN (17:17)
[2021-08-02] MEDS ORDERED: Ketorolac 30 MG/ML SDV IVPUSH ONE (17:18)
--- NOTE | 2021-08-02 17:47 | EDM.PDOC ---
ED HPI GENERAL MEDICAL PROBLEM - General Chief Complaint: [employer]AL Problem Stated Complaint: VAGINAL BLEEDING CRAMPS Time Seen by Provider: 08/02/21 16:49 Source of Information: Reports: Patient History Limitations: Reports: No Limitations - History of Present Illness INITIAL COMMENTS - FREE TEXT/NARRATIVE: 25-year-old female presents the emergency department with complaints of lower abdominal cramping and 3-day history of heavy vaginal bleeding with associated back pain. 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 However he has recommended that she go to [place] as a likely will do a hysterectomy there without requiring her to have weight loss. Patient states that since about January 2021 she has developed intermittent heavy vaginal bleeding generally lasting about 2 weeks at a time. She states that she developed vaginal bleeding approximately 2 weeks ago however over the course of the past 3 days it has become heavy passing large clots and developed lower abdominal cramping and low back pain. She states that over the past 3 days she has needed to change her tampon every 20 to 30 minutes due to the vaginal bleeding. She states she is also developed a migraine headache. Denies any complaints of dizziness or lightheadedness associated with blood loss. She denies any recent fever, chills, nausea, vomiting or diarrhea. She states she did call clinic today and was notified that he is on vacation and his nurse recommended she come to the emergency department to be evaluated. Lower Abdomen Pain Score (Numeric/FACES): 8 Lower Back Pain Score (Numeric/FACES): 4 - Related Data Allergies Allergy/AdvReac Type Severity Reaction Status Date / Time No Known Allergies Allergy Verified 04/30/18 15:35 Home Meds: Home Meds Cefdinir [Omnicef] 300 mg PO BID #10 cap 08/02/21 [Rx] Diclofenac Sodium [Voltaren] 75 mg PO BIDMEALS #6 tab.cr 08/02/21 [Rx] Dicyclomine [Bentyl] 20 mg PO ASDIRECTED 08/02/21 [History] Norethindrone 0.35 mg PO DAILY 08/02/21 [History] Sertraline [Zoloft] 100 mg PO DAILY 08/02/21 [History] medroxyPROGESTERone [Provera] 10 mg PO DAILY #10 tab 08/02/21 [Rx] ondansetron HCL [Zofran] 4 mg PO ASDIRECTED 08/02/21 [History] Past Medical History - Past Health History Medical/Surgical History: Denies Medical/Surgical History Gastrointestinal History: Reports: Other (See Below) Other Gastrointestinal History: IBS [employer] SALES PROFESSIONAL History: Reports: Other [employer] SALES [employer]ESSIONAL History: needs hysterectomy for ireggualr and long menstrual periods Musculoskeletal History: Reports: Other (See Below) Other Musculoskeletal History: herniated disc - Infectious Disease History Infectious Disease History: Reports: None - Past Surgical History Musculoskeletal Surgical History: Reports: Other (See Below) Other Musculoskeletal Surgeries/Procedures:: fracture of right femur, jasvir placed Social & Family History - Family History Family Medical History: No Pertinent Family History - Tobacco Use Tobacco Use Status *Q: Current Every Day Tobacco User Years of Tobacco use: 7 Packs/Tins Daily: 0.5 - Caffeine Use Caffeine Use: Reports: Tea - Recreational Drug Use Recreational Drug Use: No - Living Situation & Occupation Living situation: Reports: Occupation: Unemployed ED ROS GENERAL - Review of Systems Review Of Systems: Comprehensive ROS is negative, except as noted in HPI. ED EXAM, RENAL/ - Physical Exam Exam: See Below Exam Limited By: No Limitations General Appearance: Alert, WD/WN, Moderate Distress (Due to lower abdominal cramping) Ears: Normal External Exam, Hearing Grossly Normal Nose: Normal Inspection Throat/Mouth: Normal Inspection, Normal Lips, Normal Voice, No Airway Compromise Head: Atraumatic Neck: Normal Inspection, Supple Respiratory/Chest: No Respiratory Distress, Lungs Clear, Normal Breath Sounds, No Accessory Muscle Use, Chest Non-Tender Cardiovascular: Normal Peripheral Pulses, Regular Rate, Rhythm, No Edema, No Murmur GI/Abdominal: Normal Bowel Sounds, Soft, Non-Tender, No Distention (Female) Exam: Deferred Rectal (Female) Exam: Deferred Back Exam: Normal Inspection, Full Range of Motion Extremities: Normal Inspection, Normal Range of Motion, Non-Tender, No Pedal Edema, Normal Capillary Refill Neurological: Alert, Oriented, Normal Cognition Psychiatric: Normal Affect, Normal Mood Skin Exam: Warm, Dry, Intact, Normal Color, No Rash Lymphatic: No Adenopathy Course - Vital Signs Text/Narrative:: Stated above, patient presents with heavy vaginal bleeding, lower abdominal crate liner mping as well as low back pain. Upon exam, the patient does appear to be fairly uncomfortable unable to lay still in the bed and guarding her lower abdomen. At this time she is hemodynamically stable. Heart rate is 85 and blood pressure is moderately elevated at 145/75. Physical exam is essentially unremarkable. Will obtain lab studies to include a CBC, CMP and a qualitative hCG to exclude the possibility of . Will medicate the patient with Toradol 30 mg IV for the discomfort. Last Recorded V/S: Last Vital Signs Temp 97.6 F 08/02/21 19:13 Pulse 80 08/02/21 19:13 Resp 16 08/02/21 19:13 BP 119/70 08/02/21 19:13 Pulse Ox 96 08/02/21 19:13 - Orders/Labs/Meds Orders: Active Orders 24 hr Category Date Time Status Abdomen Pelvis w Cont [CT] Stat Exams 08/02/21 19:28 Stop Req CULTURE URINE [MREF] Stat Lab 08/02/21 18:25 Received Sodium Chloride 0.9% [Saline Flush] Med 08/02/21 17:17 Active 10 ml FLUSH ASDIRECTED PRN Saline Lock Insert [OM.PC] Stat Oth 08/02/21 17:17 Ordered Medication Orders Sodium Chloride (Sodium Chloride 0.9% 10 Ml Syringe) 10 ml FLUSH ASDIRECTED PRN PRN Reason: Keep Vein Open Last Admin: 08/02/21 17:37 Dose: 10 ml Documented by: JENNIFER Labs: Laboratory Tests 08/02/21 08/02/21 08/02/21 Range/Units 17:17 17:17 17:17 WBC 12.75 H (3.98-10.04) K/mm3 RBC 5.10 (3.98-5.22) M/mm3 Hgb 14.6 (11.2-15.7) gm/dl Hct 43.9 (34.1-44.9) % MCV 86.1 (79.4-94.8) fl MCH 28.6 (25.6-32.2) pg MCHC 33.3 (32.2-35.5) g/dl RDW Std Deviation 44.5 (36.4-46.3) fL Plt Count 332 (182-369) K/mm3 MPV 10.6 (9.4-12.3) fl Neut % (Auto) 70.8 (34.0-71.1) % Lymph % (Auto) 21.3 (19.3-51.7) % Bath % (Auto) 6.3 (4.7-12.5) % Eos % (Auto) 0.8 (0.7-5.8) Baso % (Auto) 0.5 (0.1-1.2) % Neut # (Auto) 9.03 H (1.56-6.13) K/mm3 Lymph # (Auto) 2.72 (1.18-3.74) K/mm3 Bath # (Auto) 0.80 H (0.24-0.36) K/mm3 Eos # (Auto) 0.10 (0.04-0.36) K/mm3 Baso # (Auto) 0.06 (0.01-0.08) K/mm3 Sodium 139 (136-145) mEq/L Potassium 4.1 (3.5-5.1) mEq/L Chloride 104 (98-107) mEq/L Carbon Dioxide 23 (21-32) mEq/L Anion Gap 16.1 H (5-15) BUN 14 (7-18) mg/dL Creatinine 1.0 (0.55-1.02) mg/dL Est Cr Clr Drug Dosing 89.88 mL/min Estimated GFR (MDRD) > 60 (>60) mL/min BUN/Creatinine Ratio 14.0 (14-18) Glucose 98 (70-99) mg/dL Calcium 9.0 (8.5-10.1) mg/dL Magnesium 2.1 (1.8-2.4) mg/dL Total Bilirubin 0.5 (0.2-1.0) mg/dL AST 17 (15-37) U/L ALT 28 (14-59) U/L Alkaline Phosphatase 96 (46-116) U/L C-Reactive Protein (<1.0) mg/dL Total Protein 7.9 (6.4-8.2) g/dl Albumin 3.8 (3.4-5.0) g/dl Globulin 4.1 gm/dL Albumin/Globulin Ratio 0.9 L (1-2) HCG, Qual Negative (NEGATIVE) Urine Color (Yellow) Urine Appearance (Clear) Urine pH (5.0-8.0) Ur Specific [place] (1.005-1.030) Urine Protein (Negative) Urine Glucose (UA) (Negative) Urine Ketones (Negative) Urine Occult Blood (Negative) Urine Nitrite (Negative) Urine Bilirubin (Negative) Urine Urobilinogen (0.2-1.0) Ur Leukocyte Esterase (Negative) Urine RBC (0-5) /hpf Urine WBC (0-5) /hpf Ur Epithelial Cells (0-5) /hpf Urine Bacteria (FEW) /hpf Urine Mucus (FEW) /hpf 08/02/21 08/02/21 Range/Units 17:35 18:25 WBC (3.98-10.04) K/mm3 RBC (3.98-5.22) M/mm3 Hgb (11.2-15.7) gm/dl Hct (34.1-44.9) % MCV (79.4-94.8) fl MCH (25.6-32.2) pg MCHC (32.2-35.5) g/dl RDW Std Deviation (36.4-46.3) fL Plt Count (182-369) K/mm3 MPV (9.4-12.3) fl Neut % (Auto) (34.0-71.1) % Lymph % (Auto) (19.3-51.7) % Bath % (Auto) (4.7-12.5) % Eos % (Auto) (0.7-5.8) Baso % (Auto) (0.1-1.2) % Neut # (Auto) (1.56-6.13) K/mm3 Lymph # (Auto) (1.18-3.74) K/mm3 Bath # (Auto) (0.24-0.36) K/mm3 Eos # (Auto) (0.04-0.36) K/mm3 Baso # (Auto) (0.01-0.08) K/mm3 Sodium (136-145) mEq/L Potassium (3.5-5.1) mEq/L Chloride (98-107) mEq/L Carbon Dioxide (21-32) mEq/L Anion Gap (5-15) BUN (7-18) mg/dL Creatinine (0.55-1.02) mg/dL Est Cr Clr Drug Dosing mL/min Estimated GFR (MDRD) (>60) mL/min BUN/Creatinine Ratio (14-18) Glucose (70-99) mg/dL Calcium (8.5-10.1) mg/dL Magnesium (1.8-2.4) mg/dL Total Bilirubin (0.2-1.0) mg/dL AST (15-37) U/L ALT (14-59) U/L Alkaline Phosphatase (46-116) U/L C-Reactive Protein 2.4 H* (<1.0) mg/dL Total Protein (6.4-8.2) g/dl Albumin (3.4-5.0) g/dl Globulin gm/dL Albumin/Globulin Ratio (1-2) HCG, Qual (NEGATIVE) Urine Color [place] H (Yellow) Urine Appearance Slt cloudy H (Clear) Urine pH 5.5 (5.0-8.0) Ur Specific [place] 1.025 (1.005-1.030) Urine Protein Trace H (Negative) Urine Glucose (UA) Negative (Negative) Urine Ketones Negative (Negative) Urine Occult Blood 3+ H (Negative) Urine Nitrite Negative (Negative) Urine Bilirubin Negative (Negative) Urine Urobilinogen 0.2 (0.2-1.0) Ur Leukocyte Esterase Trace H (Negative) Urine RBC Too numerous to cnt H (0-5) /hpf Urine WBC 10-20 H (0-5) /hpf Ur Epithelial Cells 20-30 H (0-5) /hpf Urine Bacteria Moderate H (FEW) /hpf Urine Mucus Not seen (FEW) /hpf Meds: Medications Generic Name Dose Route Start Last Admin Trade Name Frearsenio PRN Reason Stop Dose Admin Sodium Chloride 10 ml 08/02/21 17:17 08/02/21 17:37 Sodium Chloride 0.9% 10 Ml Syringe FLUSH 10 ml ASDIRECTED PRN Administration Keep Vein Open Discontinued Medications Generic Name Dose Route Start Last Admin Trade Name Freq PRN Reason Stop Dose Admin Hydromorphone HCl 1 mg 08/02/21 19:00 08/02/21 19:12 Hydromorphone 1 Mg/Ml Syringe IVPUSH 08/02/21 19:01 1 mg ONETIME ONE Administration Ceftriaxone Sodium 1 gm/ 100 mls @ 200 mls/hr 08/02/21 19:44 08/02/21 19:51 Sodium Chloride IV 08/02/21 20:13 200 mls/hr ONETIME ONE Administration Ketorolac Tromethamine 30 mg 08/02/21 17:18 08/02/21 17:39 Ketorolac 30 Mg/Ml Sdv IVPUSH 08/02/21 17:19 30 mg ONETIME ONE Administration Ondansetron HCl 4 mg 08/02/21 19:18 08/02/21 19:22 Ondansetron 4 Mg/2 Ml Sdv IVPUSH 08/02/21 19:19 4 mg ONETIME ONE Administration - Re-Assessments/Exams Free Text/Narrative Re-Assessment/Exam: 08/02/21 19:12 Hematology reveals a WBC of 12.75, hemoglobin 14.6, hematocrit 43.9, platelet count 332 Chemistry reveals a sodium of 139, potassium 4.1, anion gap 16.1, BUN 14, creatinine 1.0, GFR greater than 60, glucose 98, magnesium 2.1, C-reactive protein 2.4, qualitative hCG is negative Urinalysis is pending. Patient is still having a significant amount of suprapubic abdominal pain. I have ordered for her to receive a milligram of Dilaudid IV. 08/02/21 19:53 Urinalysis reveals trace protein, 3+ occult blood, nitrate negative, trace leukocytes esterase, urine RBC too numerous to count, urine WBC 10-20, urine epithelial cells 20-30, urine bacteria moderate Patient will be given a gram Rocephin IV to treat urinary tract infection. Case was discussed with Dr. Shirley who recommends starting the patient on Provera 10mg at bedtime for 10 days. Patient will also be started on Omnicef 300 mg twice daily for 5 days. A prescription will be sent to her pharmacy. Departure - Departure Time of Disposition: 20:10 Disposition: Home, Self-Care 01 Condition: Good Clinical Impression: UTI, Urinary tract infectious disease, Vaginal bleeding - Discharge Information Prescriptions: Cefdinir [Omnicef] 300 mg PO BID #10 cap medroxyPROGESTERone [Provera] 10 mg PO DAILY #10 tab Diclofenac Sodium [Voltaren] 75 mg PO BIDMEALS #6 tab.cr Referrals: Deysi Villavicencio PA-C [Primary Care Provider] - Forms: ED Department Discharge Additional Instructions: You were seen in the emergency department with heavy vaginal bleeding as well as lower abdominal pain. Lab studies were completed which revealed a slightly elevated white blood cell count and inflammatory marker. Urinalysis was completed which does show you have a urinary tract infection. While in the emergency department you did receive IV pain medication which eventually did help with the discomfort. You also received IV antibiotics to treat urinary tract infection. Hemoglobin levels were stable to show that you are not losing an excessive amount of blood. As discussed. I have sent prescription for a medication called Provera 10 mg tabs. You need to take 1 tab at bedtime every night for 10 days. You should notice within the next couple of days your vaginal bleeding begins to decrease. You likely will have a normal period 2 to 3 days after you have finished taking the Provera. As discussed this resets your menstrual cycle. However you are going to need to follow-up with Dr. Harmon or surgical services in [place] for hysterectomy. I have also sent prescription for anti-inflammatory called Voltaren to decrease the bleeding and discomfort associated with the cramping and the UTI. He will take 1 tablet twice daily with food for the next 3 days. I have sent prescription for an antibiotic called Omnicef to the pharmacy. You will need to take this medication twice daily until gone. Also recommend that you have a urinalysis rechecked to be sure that the antibiotic has been effective in clearing up your infection. Commend that while you are at the pharmacy to pickers material handlers some [id number]. This medication helps to decrease inflammation and bladder irritation associated with urinary tract infection. Should your condition worsen or change, do not hesitate returning to the emergency department. Sepsis Event Note (ED) - Focused Exam Vital Signs: Vital Signs Temp Pulse Resp BP Pulse Ox 08/02/21 19:13 97.6 F 80 16 119/70 96 08/02/21 16:26 95.9 F L 85 20 145/75 H 98 - My Orders Last 24 Hours: My Active Orders 08/02/21 17:17 Sodium Chloride 0.9% [Saline Flush] 10 ml FLUSH ASDIRECTED PRN Saline Lock Insert [OM.PC] Stat 08/02/21 18:25 CULTURE URINE [MREF] Stat 08/02/21 19:28 Abdomen Pelvis w Cont [CT] Stat - Assessment/Plan Last 24 Hours: My Active Orders 08/02/21 17:17 Sodium Chloride 0.9% [Saline Flush] 10 ml FLUSH ASDIRECTED PRN Saline Lock Insert [OM.PC] Stat 08/02/21 18:25 CULTURE URINE [MREF] Stat 08/02/21 19:28 Abdomen Pelvis w Cont [CT] Stat
[2021-08-02] MEDS ORDERED: HYDROmorphone 1 MG/ML Syringe IVPUSH ONE (19:00)
[2021-08-02 19:14] VITALS: BP 119/70; PULSE 80
[2021-08-02] MEDS ORDERED: Ondansetron 4 MG/2 ML SDV IVPUSH ONE (19:18)
[2021-08-02] MEDS ORDERED: cefTRIAXone 1 GM in Sodium Chloride 0.9% 100 ML IV ONE (19:44)
== END 2021-08-02 20:35 | disposition home or self-care (01) ==
LOC: JD.ED 15:55
DX: N39.0 Urinary tract infection, site not specified (principal); N93.9 Abnormal uterine and vaginal bleeding, unspecified; Z72.0 Tobacco use
CPT/HCPCS: 36415; 80053; 81001; 83735; 84703; 85025; 86140; 87086; 96365; 96375; 99284; J0696; J1170; J1885; J2405

== ENCOUNTER 2021-08-03 06:51 | Emergency (ER) | payer MEDICAID ==
[2021-08-03 07:31] VITALS: BP 111/72; PULSE 75
[2021-08-03] MEDS ORDERED: Sodium Chloride 0.9% 10 ML Syringe FLUSH PRN (07:34)
[2021-08-03] MEDS ORDERED: Sodium Chloride 0.9% 1,000 ML IV STA (07:34)
[2021-08-03] MEDS ORDERED: Ondansetron 4 MG/2 ML SDV IVPUSH ONE (07:34)
[2021-08-03] MEDS ORDERED: HYDROmorphone 1 MG/ML Syringe IVPUSH ONE (07:36)
--- NOTE | 2021-08-03 08:31 | EDM.PDOC ---
ED HPI GENERAL MEDICAL PROBLEM - General Chief Complaint: Abdominal Pain Stated Complaint: abdominal pain Time Seen by Provider: 08/03/21 07:13 Source of Information: Reports: Patient History Limitations: Reports: No Limitations - History of Present Illness INITIAL COMMENTS - FREE TEXT/NARRATIVE: The patient presents with lower abdominal pain. This has been going on for a few days. She was seen here yesterday for the same and she also had vaginal bleeding. She has been having pain like this but not this bad and also vaginal bleeding. She is supposed to get a hysterectomy but she needs to loose about 25 pounds. She has been seeing Dr Harmon. She had a complete work up done here with labs. Her pain was better so she elevated not to have a CT scan done. She was doing good with her pain until 3am and the pain came back. She was crying in the room and in 10/10 pain. She has nausea and vomiting also. She has no fever, chills, cough, chest pain or shortness of breath. Onset: Gradual Duration: Day(s): Location: Reports: Abdomen Quality: Reports: Sharp Severity: Severe Improves with: Reports: None Worsens with: Reports: None Associated Symptoms: Reports: Nausea/Vomiting. Denies: Chest Pain, Cough, Fever/Chills, Headaches, Shortness of Breath Bilateral Lower Pelvic Pain Score (Numeric/FACES): 10 - Related Data Allergies Allergy/AdvReac Type Severity Reaction Status Date / Time No Known Allergies Allergy Verified 08/03/21 07:32 Home Meds: Home Meds Cefdinir [Omnicef] 300 mg PO BID #10 cap 08/02/21 [Rx] Diclofenac Sodium [Voltaren] 75 mg PO BIDMEALS #6 tab.cr 08/02/21 [Rx] Dicyclomine [Bentyl] 20 mg PO ASDIRECTED 08/02/21 [History] Norethindrone 0.35 mg PO DAILY 08/02/21 [History] Sertraline [Zoloft] 100 mg PO DAILY 08/02/21 [History] medroxyPROGESTERone [Provera] 10 mg PO DAILY #10 tab 08/02/21 [Rx] ondansetron HCL [Zofran] 4 mg PO ASDIRECTED 08/02/21 [History] Hydrocodone/Acetaminophen [Hydrocodone-Acetamin 5-325 mg] 1 - 2 each PO Q6H PRN #15 tablet 08/03/21 [Rx] Past Medical History - Past Health History Medical/Surgical History: Denies Medical/Surgical History HEENT History: Reports: Impaired Vision, Other (See Below) Other HEENT History: wears eye glasses, several bouts of tonsilitis Respiratory History: Reports: Bronchitis, Recurrent Gastrointestinal History: Reports: Irritable Bowel Syndrome, Other (See Below) Other Gastrointestinal History: IBS Genitourinary History: Reports: Pyelonephritis, UTI, Recurrent 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: Reports: Other 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: needs hysterectomy for ireggualr and long menstrual periods Musculoskeletal History: Reports: Back Pain, Chronic, Other (See Below) Other Musculoskeletal History: herniated disc Neurological History: Reports: Migraines Psychiatric History: Reports: Anxiety, Depression Endocrine/Metabolic History: Reports: Obesity/BMI 30+ - Infectious Disease History Infectious Disease History: Reports: None - Past Surgical History Musculoskeletal Surgical History: Reports: Other (See Below) Other Musculoskeletal Surgeries/Procedures:: fracture of right femur, jasvir placed Social & Family History - Family History Family Medical History: No Pertinent Family History - Tobacco Use Tobacco Use Status *Q: Current Every Day Tobacco User Years of Tobacco use: 7 Packs/Tins Daily: 0.5 Used Tobacco, but Quit: No Second Hand Smoke Exposure: No - Caffeine Use Caffeine Use: Reports: Tea - Recreational Drug Use Recreational Drug Use: No - Living Situation & Occupation Living situation: Reports: Occupation: Unemployed ED ROS GENERAL - Review of Systems Review Of Systems: See Below Constitutional: Reports: No Symptoms HEENT: Reports: No Symptoms Respiratory: Reports: No Symptoms Cardiovascular: Reports: No Symptoms Endocrine: Reports: No Symptoms GI/Abdominal: Reports: Abdominal Pain, Nausea, Vomiting : Reports: Other (Vaginal bleeding) Musculoskeletal: Reports: No Symptoms Skin: Reports: No Symptoms ED EXAM, GI/ABD - Physical Exam Exam: See Below Exam Limited By: No Limitations General Appearance: Alert, No Apparent Distress Ears: Normal External Exam Nose: Normal Inspection Head: Atraumatic, Normocephalic Neck: Normal Inspection Respiratory/Chest: No Respiratory Distress, Lungs Clear, Normal Breath Sounds Cardiovascular: Regular Rate, Rhythm, No Edema, No Murmur GI/Abdominal Exam: Soft, Non-Tender, No Organomegaly, No Mass Back Exam: Normal Inspection Extremities: Normal Inspection Course - Vital Signs Last Recorded V/S: Last Vital Signs Temp 98.1 F 08/03/21 07:27 Pulse 75 08/03/21 07:27 Resp 24 H 08/03/21 07:27 BP 111/72 08/03/21 07:27 Pulse Ox 100 08/03/21 07:27 - Orders/Labs/Meds Orders: Active Orders 24 hr Category Date Time Status Peripheral IV Care [RC] . DIRECTED Care 08/03/21 07:35 Active Sodium Chloride 0.9% [Saline Flush] Med 08/03/21 07:34 Active 10 ml FLUSH ASDIRECTED PRN ED Antiemetic Medication Reflex [OM.PC] Stat Oth 08/03/21 07:35 Ordered Peripheral IV Insertion Adult [OM.PC] Stat Oth 08/03/21 07:34 Ordered Medication Orders Sodium Chloride (Sodium Chloride 0.9% 10 Ml Syringe) 10 ml FLUSH ASDIRECTED PRN PRN Reason: Keep Vein Open Last Admin: 08/03/21 07:56 Dose: 10 ml Documented by: SADE Labs: Laboratory Tests 08/03/21 08/03/21 08/03/21 Range/Units 07:48 07:48 07:48 WBC 12.20 H (3.98-10.04) K/mm3 RBC 4.83 (3.98-5.22) M/mm3 Hgb 13.8 (11.2-15.7) gm/dl Hct 42.2 (34.1-44.9) % MCV 87.4 (79.4-94.8) fl MCH 28.6 (25.6-32.2) pg MCHC 32.7 (32.2-35.5) g/dl RDW Std Deviation 44.8 (36.4-46.3) fL Plt Count 324 (182-369) K/mm3 MPV 10.4 (9.4-12.3) fl Neut % (Auto) 68.5 (34.0-71.1) % Lymph % (Auto) 22.0 (19.3-51.7) % [place] % (Auto) 7.8 (4.7-12.5) % Eos % (Auto) 1.0 (0.7-5.8) Baso % (Auto) 0.3 (0.1-1.2) % Neut # (Auto) 8.35 H (1.56-6.13) K/mm3 Lymph # (Auto) 2.69 (1.18-3.74) K/mm3 [place] # (Auto) 0.95 H (0.24-0.36) K/mm3 Eos # (Auto) 0.12 (0.04-0.36) K/mm3 Baso # (Auto) 0.04 (0.01-0.08) K/mm3 Manual Slide Review Normal smear Sodium 142 (136-145) mEq/L Potassium 4.3 (3.5-5.1) mEq/L Chloride 106 (98-107) mEq/L Carbon Dioxide 22 (21-32) mEq/L Anion Gap 18.3 H (5-15) BUN 20 H (7-18) mg/dL Creatinine 1.2 H (0.55-1.02) mg/dL Est Cr Clr Drug Dosing TNP Estimated GFR (MDRD) 55 (>60) mL/min BUN/Creatinine Ratio 16.7 (14-18) Glucose 102 H (70-99) mg/dL Calcium 9.1 (8.5-10.1) mg/dL Total Bilirubin 0.3 (0.2-1.0) mg/dL AST 21 (15-37) U/L ALT 26 (14-59) U/L Alkaline Phosphatase 96 (46-116) U/L Total Protein 7.1 (6.4-8.2) g/dl Albumin 3.6 (3.4-5.0) g/dl Globulin 3.5 gm/dL Albumin/Globulin Ratio 1.0 (1-2) Lipase 78 (73-393) U/L HCG, Qual Negative (NEGATIVE) Meds: Medications Generic Name Dose Route Start Last Admin Trade Name Freq PRN Reason Stop Dose Admin Sodium Chloride 10 ml 08/03/21 07:34 08/03/21 07:56 Sodium Chloride 0.9% 10 Ml Syringe FLUSH 10 ml ASDIRECTED PRN Administration Keep Vein Open Discontinued Medications Generic Name Dose Route Start Last Admin Trade Name Freq PRN Reason Stop Dose Admin Hydromorphone HCl 1 mg 08/03/21 07:36 08/03/21 07:57 Hydromorphone 1 Mg/Ml Syringe IVPUSH 08/03/21 07:37 1 mg ONETIME ONE Administration Hydromorphone HCl 0.5 mg 08/03/21 08:56 08/03/21 09:08 Hydromorphone 0.5 Mg/0.5 Ml Syringe IVPUSH 08/03/21 08:57 0.5 mg ONETIME ONE Administration Sodium Chloride 1,000 mls @ 1,000 mls/hr 08/03/21 07:34 08/03/21 07:45 Normal Saline IV 08/03/21 08:33 1,000 mls/hr .BOLUS STA Administration Ketorolac Tromethamine 30 mg 08/03/21 10:38 Ketorolac 30 Mg/Ml Sdv IVPUSH 08/03/21 10:39 ONETIME ONE Ondansetron HCl 4 mg 08/03/21 07:34 08/03/21 07:45 Ondansetron 4 Mg/2 Ml Sdv IVPUSH 08/03/21 07:35 4 mg ONETIME ONE Administration - Re-Assessments/Exams Free Text/Narrative Re-Assessment/Exam: 08/03/21 08:31 I ordered an IV NS 1L bolus, zofran 4mg IV, dilaudid 1mg IV, labs and a CT of her abdomen and pelvis. 08/03/21 10:39 Her WBC was slightly elevated at 12.2. Creatinine is elevated at 1.2. Her lipase is normal. Her HCG is negative. Her CT shows fat-containing umbilical hernia. Small fat-containing hernia above the umbilicus measuring 3mm. Mild fatty infiltration is seen within the liver. No other acute abnormality is appreciated on noncontrast CT study of the abdomen and pelvis. She feels better after another dose of dilaudid. I will also give her some toradol. I have ordered an US done outpatient. I tried calling Dr Harmon and he was out until Sunday. I will discharge the patient home and have her continue the provera and I will give her something for pain. I have put in an order for a transvaginal US. They will call her with a time to come in for that. Departure - Departure Time of Disposition: 10:50 Disposition: Home, Self-Care 01 Condition: Good Clinical Impression: Vaginal bleeding, Abdominal pain - Discharge Information *PRESCRIPTION DRUG MONITORING PROGRAM REVIEWED*: Not Applicable *COPY OF PRESCRIPTION DRUG MONITORING REPORT IN PATIENT AUGUST: Not Applicable Prescriptions: Hydrocodone/Acetaminophen [Hydrocodone-Acetamin 5-325 mg] 1 - 2 each PO Q6H PRN #15 tablet PRN Reason: Pain Referrals: Deysi Villavicencio PA-C [Primary Care Provider] - Sb Harmon MD [Physician] - 1 Week Forms: ED Department Discharge Additional Instructions: Keep taking the provera as prescribed and the antiinflammatory you were prescribed. You can also try the hydrocodone as needed for pain. Follow with Dr Harmon within a week. Please return if you are worse. Sepsis Event Note (ED) - Evaluation Sepsis Screening Result: No Definite Risk - Focused Exam Vital Signs: Vital Signs Temp Pulse Resp BP Pulse Ox 08/03/21 07:27 98.1 F 75 24 H 111/72 100 - My Orders Last 24 Hours: My Active Orders 08/03/21 07:34 Sodium Chloride 0.9% [Saline Flush] 10 ml FLUSH ASDIRECTED PRN Peripheral IV Insertion Adult [OM.PC] Stat 08/03/21 07:35 Peripheral IV Care [RC] . DIRECTED ED Antiemetic Medication Reflex [OM.PC] Stat - Assessment/Plan Last 24 Hours: My Active Orders 08/03/21 07:34 Sodium Chloride 0.9% [Saline Flush] 10 ml FLUSH ASDIRECTED PRN Peripheral IV Insertion Adult [OM.PC] Stat 08/03/21 07:35 Peripheral IV Care [RC] . DIRECTED ED Antiemetic Medication Reflex [OM.PC] Stat
[2021-08-03] MEDS ORDERED: HYDROmorphone 0.5 MG/0.5 ML Syringe IVPUSH ONE (08:56)
--- NOTE | 2021-08-03 09:47 | CT ---
CT abdomen and pelvis Technique: Multiple axial sections were obtained from above the dome of the diaphragm inferiorly through the pubic symphysis. Intravenous and oral contrast were not utilized. Reconstructed coronal and sagittal images were obtained. Comparison: Prior CT abdomen and pelvis study of 05/12/14. Findings: Visualized lung bases show nothing acute. Mild fatty infiltration is seen within the liver. Spleen size is normal. Adrenal glands show no nodules. Pancreas appears within normal limits. Gallbladder contains no calcified gallstones. Kidneys show no abnormal calcifications. No ureteral dilatation or ureteral stone is seen. Abdominal aorta shows no aneurysm. No retroperitoneal adenopathy or mesenteric abnormalities are seen. Appendix is seen which is normal in size. No pelvic mass or adenopathy is seen. Bone window settings were reviewed which show disc space narrowing at L5-S1 with slight vacuum phenomena. Fat-containing umbilical hernia is noted. Very small fat-containing hernia is seen above the umbilicus measuring about 3 mm. Impression: 1. Fat-containing umbilical hernia. Small fat-containing hernia above the umbilicus measuring 3 mm. 2. Mild fatty infiltration is seen within the liver. 3. No other acute abnormality is appreciated on noncontrast CT study of the abdomen and pelvis. Diagnostic code #2
[2021-08-03] MEDS ORDERED: Ketorolac 30 MG/ML SDV IVPUSH ONE (10:38)
== END 2021-08-03 11:05 | disposition home or self-care (01) ==
LOC: JD.ED 06:51
DX: N93.9 Abnormal uterine and vaginal bleeding, unspecified (principal); E66.9 Obesity, unspecified; Z68.42 Body mass index [BMI] 45.0-49.9, adult; Z72.0 Tobacco use; Z79.899 Other long term (current) drug therapy
CPT/HCPCS: 36415; 74176; 74176-26; 80053; 83690; 84703; 85025; 96374; 96375; 96376; 99284-25; J1170; J1885; J2405; J7030

== ENCOUNTER 2021-09-07 08:40 | Day surgery (SDC) | payer MEDICAID ==
[~2021-09-07 08:40] MED LIST: Lactated Ringers 1,000 ML IV SCH; Lidocaine 1%/Sod Bicarbonate in NS 8.4% 1 ML Syringe IDERM PRN; Scopolamine 1.5 MG Transdermal Patch TOP SCH; Sodium Chloride 0.9% 10 ML Syringe FLUSH SCH
--- NOTE | 2021-09-07 08:50 | PCM.PREANE ---
Preanesthetic Assessment - Procedure Proposed Procedure: Total vaginal hysterectomy - Anesthesia/Transfusion/Family Hx Anesthesia History: Prior Anesthesia Without Reaction Family History of Anesthesia Reaction: No Transfusion History: No Prior Transfusion(s) Intubation History: Unknown - Review of Systems General: No Symptoms Pulmonary: No Symptoms Cardiovascular: No Symptoms Gastrointestinal: No Symptoms Neurological: No Symptoms Other: Reports: Diabetes, Thyroid Problems (thyroid dysfunction-saw primary regarding this and patient stated that she was boarderline and did not need to start medication yet and will be going in two months for a follow up to assess again) - Physical Assessment NPO Status Date: 09/06/21 NPO Status Time: 23:50 Vital Signs: 168/91 HR 84 97.5 RR 16 97% Height: 1.75 m Weight: 150 kg ASA Class: 3 Mental Status: Alert & Oriented x3 Airway Class: Mallampati = 2 Dentition: Reports: Caries Thyro-Mental Finger Breadths: 3 Mouth Opening Finger Breadths: 3 ROM/Head Extension: Full Lungs: Normal Respiratory Effort, Decreased Breath Sounds, Wheezing Cardiovascular: Regular Rate, Regular Rhythm, No Murmurs - Lab Values: Labs drawn this morning and awaiting results - Allergies Allergies/Adverse Reactions: Allergies Allergy/AdvReac Type Severity Reaction Status Date / Time No Known Allergies Allergy Verified 09/07/21 09:05 - Acknowledgements Anesthesia Type Planned: General Anesthesia Pt an Appropriate Candidate for the Planned Anesthesia: Yes Alternatives and Risks of Anesthesia Discussed w Pt/Guardian: Yes Pt/Guardian Understands and Agrees with Anesthesia Plan: Yes PreAnesthesia Questionnaire - Past Health History Medical/Surgical History: Denies Medical/Surgical History HEENT History: Reports: Impaired Vision, Other (See Below) Other HEENT History: wears eye glasses, several bouts of tonsilitis Cardiovascular History: Reports: None Respiratory History: Reports: Bronchitis, Recurrent Gastrointestinal History: Reports: Irritable Bowel Syndrome, Other (See Below) Other Gastrointestinal History: IBS, ABDOMINAL PAIN Genitourinary History: Reports: Pyelonephritis (resolved), UTI, Recurrent, Other (See Below) Other Genitourinary History: 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: , 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 Other OB/BYN History: DYSMENORRHEA, PELVIC PAIN, DECREASED PROGESTERONE, MENORRHAGIA, , SAB Musculoskeletal History: Reports: Back Pain, Chronic, Other (See Below) Other Musculoskeletal History: herniated disc lumbar Neurological History: Reports: Migraines, Other (See Below) Other Neuro History: HERNIATED DISC, LUMBAR DISC DISECTOMY Psychiatric History: Reports: Anxiety, Depression, Other (See Below) (insomnia) Endocrine/Metabolic History: Reports: Obesity/BMI 30+, Other (See Below) Other Endocrine/Metabolic History: THYROID DYSFUNCTION, insulin resistence Hematologic History: Reports: None Immunologic History: Reports: None Oncologic (Cancer) History: Reports: None Dermatologic History: Reports: None - Infectious Disease History Infectious Disease History: Reports: None - Past Surgical History Head Surgeries/Procedures: Reports: None HEENT Surgical History: Reports: Oral Surgery (wisdom teeth) Cardiovascular Surgical History: Reports: None Respiratory Surgical History: Reports: None GI Surgical History: Reports: Colonoscopy, EGD Female Surgical History: Reports: None Male Surgical History: Reports: None Endocrine Surgical History: Reports: None Musculoskeletal Surgical History: Reports: Other (See Below) Other Musculoskeletal Surgeries/Procedures:: fracture of right femur, jasvir placed, harware removal to femur Oncologic Surgical History: Reports: None Dermatological Surgical History: Reports: None - SUBSTANCE USE Tobacco Use Status *Q: Current Every Day Tobacco User Tobacco Use Within Last Twelve Months: Cigarettes Second Hand Smoke Exposure: Yes Days Per Week of Alcohol Use: 0 Number of Drinks Per Day: 0 Total Drinks Per Week: 0 Recreational Drug Use History: No - HOME MEDS Home Medications: Home Meds Dicyclomine [Bentyl] 20 mg PO TID PRN 08/02/21 [History] Sertraline [Zoloft] 100 mg PO DAILY 08/02/21 [History] Ascorbic Acid [Vitamin C] 1,000 mg PO DAILY 09/06/21 [History] Cholecalciferol (Vitamin D3) [Vitamin D3] 5,000 unit PO DAILY 09/06/21 [History] Loperamide HCl [Anti-Diarrheal] 2 mg PO BID PRN 09/06/21 [History] Multivitamin 1 tab PO DAILY 09/06/21 [History] Ondansetron [Zofran] 8 mg PO TID PRN 09/06/21 [History] metFORMIN [Glucophage] 500 mg PO QPM 09/06/21 [History] - CURRENT (IN HOUSE) MEDS Current Meds: Current Medications Lactated Ringer's (Ringers, Lactated) 1,000 mls @ 125 mls/hr IV ASDIRECTED PAULA Stop: 09/07/21 23:00 Lidocaine/Sodium Bicarbonate (Lidocaine 1%/Sod Bicarbonate In Ns 8.4% 1 Ml Syringe) 0.25 ml IDERM ONETIME PRN PRN Reason: Prior to IV Start Stop: 09/07/21 18:00 Scopolamine (Scopolamine 1.5 Mg Transdermal Patch) 1.5 mg TOP ONETIME PAULA Stop: 09/07/21 18:00 Sodium Chloride (Sodium Chloride 0.9% 10 Ml Syringe) 10 ml FLUSH 0900,2100 PAULA Stop: 09/07/21 18:00
[2021-09-07] MEDS ORDERED: Scopolamine 1.5 MG Transdermal Patch TOP ONE (09:05)
[2021-09-07] MEDS ORDERED: Midazolam 1 MG/ML 2 ML SDV ONE (09:49)
[2021-09-07] MEDS ORDERED: ceFAZolin 1 GM Vial ONE ×2 (09:49→10:51)
[2021-09-07] MEDS ORDERED: Succinylcholine/Sod PF 100 MG/5 ML SYRINGE IV ONE ×2 (09:50→10:47)
[2021-09-07] MEDS ORDERED: fentaNYL 250 MCG/5 ML SDV ONE (09:50)
[2021-09-07] MEDS ORDERED: Rocuronium 50 MG/5 ML Vial ONE (09:51)
[2021-09-07] MEDS ORDERED: Ondansetron 4 MG/2 ML SDV ONE (09:59)
[2021-09-07] MEDS ORDERED: Dexamethasone 4 MG/ML 5 ML MDV ONE (09:59)
[2021-09-07] MEDS ORDERED: Albuterol 0.083% 2.5 MG/3 ML Neb Soln NEB ONE (10:00)
[2021-09-07] MEDS ORDERED: Propofol 200 MG/20 ML SDV ONE (10:02)
[2021-09-07] MEDS ORDERED: Ketorolac 30 MG/ML SDV ONE (10:06)
[2021-09-07] MEDS ORDERED: Lidocaine 1% 4 ML ONE (10:06)
[2021-09-07] MEDS ORDERED: Ketamine 500 mg/10 ML MDV ONE (10:06)
[2021-09-07] MEDS ORDERED: Lactated Ringers 1,000 ML ONE ×2 (10:40→11:25)
[2021-09-07] MEDS ORDERED: Lidocaine 1% with EPINEPHrine 1:100,000 20 ML MDV ONE (10:59)
[2021-09-07] MEDS ORDERED: Sodium Chloride 0.9% 50 ML SDV ONE (10:59)
[2021-09-07] MEDS ORDERED: Atropine 0.4 MG/ML SDV ONE (11:12)
[2021-09-07] MEDS ORDERED: Acetaminophen/oxyCODONE 325-5 MG Tab PO PRN (11:42)
[2021-09-07] MEDS ORDERED: Ondansetron 4 MG/2 ML SDV IVPUSH PRN (11:42)
[2021-09-07] MEDS ORDERED: Ketorolac 30 MG/ML SDV IVPUSH SCH (11:45)
[2021-09-07] MEDS ORDERED: HYDROmorphone 0.5 MG/0.5 ML Syringe ONE (11:48)
--- NOTE | 2021-09-07 11:48 | PCM.OPNOTE ---
- General Post-Op/Procedure Note Date of Surgery/Procedure: 09/07/21 Operative Procedure(s): Total vaginal hysterectomy with bilateral salpingectomy Findings: Uterus is upper limits normal size. Bilateral ovary appearance consistent with polycystic ovarian disease bilaterally. Fallopian tubes unremarkable. Pre Op Diagnosis: 1. Menorrhagia. 2. Dysmenorrhea Post-Op Diagnosis: Same Anesthesia Technique: General ET Tube Other Anesthesia Type: Lidocaine quarter percent with [id number] mL totallocal Primary Surgeon: Sb Harmon Secondary Surgeon: Karl Javier Anesthesia Provider: Josiah Giles Reason Weight Loss Physician Was Necessary: Retraction, assistance, patient safety, quality of care. Pathology: Uterus, bilateral fallopian tubes in one specimen container. Fluid Replacement, Intraop: 2,000 EBL in mLs: 100 Complications: None Condition: Good Free Text/Narrative:: Surgery duration: 31 minutes. Procedure: The patient was placed in supine position on the operating table. She received 3 g of Ancef. Sequential compression stockings were in place for DVT prophylaxis. General endotracheal anesthesia was accomplished. After positioning, and adequate prep and drape, the procedure was then performed. Sterile speculum was placed in the vagina and cervix was visualized. Cervix was injected with lidocaine quarter percent with epinephrine-20 mL used. A full circumference incision was made in the cervical epithelium. The bladder was pushed well back off cervix. Posterior cul-de-sac was then entered sharply without problems. Left uterosacral was crossclamped with a Enseal vessel closure system. The left uterosacral and then the right uterosacral ligament pedicles were developed using the Enseal system. The anterior cul-de-sac was then entered without problems and the uterine vasculature, cardinal ligament and broad ligament then developed using Enseal vessel closure system. The uterus was inverted at this time and upper broad ligament fallopian tube pedicles were crossclamped with Rashid clamps. Specimen was totally removed. Both these pedicles were then secured with the Enseal vessel closure system. Left and right fallopian tube was normal in appearance.. Using Enseal vessel closure system each of the tubes was then removed and sent with the specimen. The patient was found to be hemostatically intact at this time. Vaginal cuff was sutured for hemostatic reasons with a running locked suture of 0 Monocryl from the 2 o'clock position to the 10 o'clock position posteriorly. Vaginal cuff was then closed from right to left side with a running locked suture of 0 Monocryl. Patient was returned to supine position and awakened from general endotracheal anesthesia. She tolerated the procedure and left the operating room in satisfactory condition.
[2021-09-07] MEDS ORDERED: HYDROmorphone 0.5 MG/0.5 ML Syringe IVPUSH PRN (12:06)
[2021-09-07] MEDS ORDERED: fentaNYL 100 MCG/2 ML SDV IVPUSH PRN (12:06)
--- NOTE | 2021-09-07 12:08 | PCM.POSTAN ---
POST ANESTHESIA ASSESSMENT - MENTAL STATUS Mental Status: Somnolent - VITAL SIGNS Vital Signs: Last Vital Signs Temp 98.4 F 09/07/21 11:54 Pulse 67 09/07/21 11:54 Resp 20 09/07/21 11:54 BP 110/40 L 09/07/21 11:54 Pulse Ox 95 09/07/21 11:54 - RESPIRATORY Respiratory Status: Respiratory Rate WNL, Airway Patent, O2 Saturation Stable, Supplemental Oxygen - CARDIOVASCULAR CV Status: Pulse Rate WNL, Blood Pressure Stable - GASTROINTESTINAL GI Status: No Symptoms - PAIN Pain Score: 0 - POST OP HYDRATION Hydration Status: Adequate & Stable
[2021-09-07 14:20] VITALS: BP 114/72
[2021-09-07] MEDS ORDERED: Acetaminophen/oxyCODONE 325-5 MG Tab PO ONE (15:00)
--- NOTE | 2021-09-07 15:00 | PCM48HPAN ---
Post Anesthesia Note - EVALUATION WITHIN 48HRS OF ANESTHETIC Vital Signs in Normal Range: Yes Patient Participated in Evaluation: Yes Respiratory Function Stable: Yes Airway Patent: Yes Cardiovascular Function Stable: Yes Hydration Status Stable: Yes Pain Control Satisfactory: Yes Nausea and Vomiting Control Satisfactory: Yes Mental Status Recovered: Yes Vital Signs: Last Vital Signs Temp 98.8 F 09/07/21 12:40 Pulse 70 09/07/21 14:15 Resp 16 09/07/21 14:15 BP 114/72 09/07/21 14:15 Pulse Ox 98 09/07/21 14:15 - COMMENTS/OBSERVATIONS Free Text/Narrative:: Preparing for discharge home
[2021-09-07 15:44] VITALS: PULSE 78
[2021-09-07] MEDS ORDERED: Ibuprofen 600 MG Tab PO PRN (18:00)
== END 2021-09-07 15:10 | disposition home or self-care (01) ==
LOC: JD.SDS 08:40
PROVIDERS: ATTEND Obstetrics & Gynecology
DX: N87.9 Dysplasia of cervix uteri, unspecified (principal); N72 Inflammatory disease of cervix uteri; N83.8 Other noninflammatory disorders of ovary, fallopian tube and broad ligament; F41.9 Anxiety disorder, unspecified; N39.0 Urinary tract infection, site not specified; E66.9 Obesity, unspecified; K58.9 Irritable bowel syndrome, unspecified; Z79.899 Other long term (current) drug therapy; Z98.890 Other specified postprocedural states; Z87.891 Personal history of nicotine dependence; Z68.42 Body mass index [BMI] 45.0-49.9, adult
CPT/HCPCS: 36415; 58262; 82947; 86850; 86900; 86901; A9270; J0330; J0461; J0690; J1100; J1170; J1885; J2250; J2405; J2704; J2710; J3010; J7120; 00944

== ENCOUNTER 2025-01-25 08:52 | Emergency (ER) | payer BC ==
[2025-01-25 09:29] LABS: BASOPHILS ABSOLUTE AUTO 0.1 K/mm3 (0.0-0.2); BASOPHILS PERCENT AUTO 0.3 % (0.0-1.0); HEMATOCRIT 47.2 % (37.0-47.0); HEMOGLOBIN 16.5 gm/dl (12.0-16.0); IMMATURE GRAN ABSOLUTE AUTO 0.15 K/mm3 (0.00-0.05); IMMATURE GRAN PERCENT AUTO 0.6 % (0.0-0.4); LYMPHOCYTES ABSOLUTE AUTO 0.9 K/mm3 (1.0-4.8); LYMPHOCYTES PERCENT AUTO 3.9 % (24.0-44.0); MEAN CORPUSCULAR HEMOGLOBIN 30.4 pg (28.0-32.0); MEAN CORPUSCULAR VOLUME 87.1 fl (83.0-99.0); MEAN PLATELET VOLUME 10.3 fl (9.4-12.3); MONOCYTES ABSOLUTE AUTO 0.9 K/mm3 (0.0-0.8); MONOCYTES PERCENT AUTO 3.9 % (0.0-8.0); NEUTROPHILS ABSOLUTE AUTO 21.6 K/mm3 (1.8-7.7); NEUTROPHILS PERCENT AUTO 91.3 % (41.0-71.0); PLATELET COUNT,PLT 275 K/mm3 (150-400); RED BLOOD CELL COUNT 5.42 M/mm3 (4.10-5.30); WHITE BLOOD CELL COUNT,WBC 23.61 K/mm3 (3.9-11.3)
[2025-01-25] MEDS: HYDROmorphone 1 MG/ML Syringe IVPUSH ONE ×3 (09:31→16:42)
[2025-01-25] MEDS: Sodium Chloride 0.9% 1,000 ML IV STA (09:34)
[2025-01-25] MEDS: Ondansetron 4 MG/2 ML SDV IVPUSH ONE (09:37)
[2025-01-25] MEDS: Sodium Chloride 0.9% 10 ML Syringe FLUSH PRN (09:45)
[2025-01-25] MEDS: Ondansetron 4 MG Tab.DIS PO ONE ×2 (09:45→17:01)
[2025-01-25] MEDS: Iopamidol 612 MG/ML 100 ML Bottle IVPUSH ONE (09:45)
[2025-01-25 09:51] LABS: A/G RATIO 1.2 (1-2); ALBUMIN 4.2 g/dl (3.4-5.0); BILIRUBIN TOTAL 1.2 mg/dL (0.2-1.0); CALCIUM 9.5 mg/dL (8.5-10.1); EST CRCL DRUG DOSING (CG) 86.75 mL/min; PROTEIN TOTAL,TP 7.7 g/dl (6.4-8.2)
[2025-01-25 11:29] LABS: APPEARANCE,URINE CLEAR (Clear); BILIRUBIN,URINE NEGATIVE (Negative); COLOR,URINE YELLOW (Yellow); GLUCOSE,URINE NEGATIVE (Negative); KETONES,URINE 1+ (Negative); LEUKOCYTE ESTERASE,URINE NEGATIVE (Negative); NITRITE,URINE NEGATIVE (Negative); OCCULT BLOOD,URINE NEGATIVE (Negative); PH,URINE 7.5 (5.0-8.0); PROTEIN,URINE NEGATIVE (Negative); UROBILINOGEN,URINE 0.2 (0.2-1.0)
[2025-01-25 11:42] LABS: RBC,URINE NOT SEEN /hpf (0-5)
[2025-01-25 11:43] LABS: BACTERIA,URINE FEW /hpf (FEW); EPITHELIAL CELLS,URINE 0-5 /hpf (0-5); MUCUS,URINE FEW /hpf (FEW); WBC,URINE NOT SEEN /hpf (0-5)
[2025-01-25] MEDS: HYDROmorphone 0.5 MG/0.5 ML Syringe IVPUSH ONE (12:33)
[2025-01-25] MEDS: methylPREDNISolone Sodium Succinate 125 MG/2 ML SDV IVPUSH ONE (12:36)
[2025-01-25] MEDS: fentaNYL 100 MCG/2 ML SDV IVPUSH ONE (13:17)
[2025-01-25] MEDS: Sodium Chloride 0.9% 10 ML Syringe FLUSH ONE (14:01)
[2025-01-25] MEDS: Ketorolac 30 MG/ML SDV IVPUSH ONE (14:15)
[2025-01-25 15:35] LABS: BASOPHILS PERCENT AUTO 0.3 % (0.0-1.0); EOSINOPHILS PERCENT AUTO 0.1 % (0.0-6.0); HEMATOCRIT 46.7 % (37.0-47.0); HEMOGLOBIN 16.2 gm/dl (12.0-16.0); IMMATURE GRAN ABSOLUTE AUTO 0.06 K/mm3 (0.00-0.05); IMMATURE GRAN PERCENT AUTO 0.4 % (0.0-0.4); LYMPHOCYTES ABSOLUTE AUTO 0.7 K/mm3 (1.0-4.8); LYMPHOCYTES PERCENT AUTO 4.8 % (24.0-44.0); MEAN CORPUSCULAR HEMOGLOBIN 30.8 pg (28.0-32.0); MEAN CORPUSCULAR HGB CONC 34.7 g/dl (32.0-36.0); MEAN CORPUSCULAR VOLUME 88.8 fl (83.0-99.0); MEAN PLATELET VOLUME 10.1 fl (9.4-12.3); MONOCYTES ABSOLUTE AUTO 0.2 K/mm3 (0.0-0.8); MONOCYTES PERCENT AUTO 1.5 % (0.0-8.0); NEUTROPHILS ABSOLUTE AUTO 12.7 K/mm3 (1.8-7.7); NEUTROPHILS PERCENT AUTO 92.9 % (41.0-71.0); PLATELET COUNT,PLT 243 K/mm3 (150-400); RED BLOOD CELL COUNT 5.26 M/mm3 (4.10-5.30); WHITE BLOOD CELL COUNT,WBC 13.64 K/mm3 (3.9-11.3)
[2025-01-25 16:10] LABS: SLIDE REVIEW ABNORMAL SMEAR
[2025-01-25 18:42] VITALS: BP 128/101; PULSE 68
== END 2025-01-25 17:08 | disposition home or self-care (01) ==
LOC: JD.ED 08:52
DX: K52.9 Noninfective gastroenteritis and colitis, unspecified (principal); E66.9 Obesity, unspecified; Z88.8 Allergy status to other drugs, medicaments and biological substances; Z79.899 Other long term (current) drug therapy; Z68.35 Body mass index [BMI] 35.0-35.9, adult
CPT/HCPCS: 36415; 74177; 76830; 80053; 81001; 83690; 85025; 96361; 96374; 96375; 96376; 99284; A9270; J1171; J1885; J2405; J2919; J7030; Q9967

== ENCOUNTER 2025-06-21 22:31 | Emergency (ER) | payer BC ==
[2025-06-21 22:55] LABS: BASOPHILS ABSOLUTE AUTO 0.1 K/mm3 (0.0-0.2); BASOPHILS PERCENT AUTO 0.8 % (0.0-1.0); EOSINOPHILS ABSOLUTE AUTO 0.2 K/mm3 (0.0-0.4); EOSINOPHILS PERCENT AUTO 1.6 % (0.0-6.0); IMMATURE GRAN ABSOLUTE AUTO 0.06 K/mm3 (0.00-0.05); IMMATURE GRAN PERCENT AUTO 0.5 % (0.0-0.4); LYMPHOCYTES ABSOLUTE AUTO 3.4 K/mm3 (1.0-4.8); LYMPHOCYTES PERCENT AUTO 29.1 % (24.0-44.0); MEAN PLATELET VOLUME 10.1 fl (9.4-12.3); MONOCYTES ABSOLUTE AUTO 0.8 K/mm3 (0.0-0.8); MONOCYTES PERCENT AUTO 6.8 % (0.0-8.0); NEUTROPHILS ABSOLUTE AUTO 7.2 K/mm3 (1.8-7.7); NEUTROPHILS PERCENT AUTO 61.2 % (41.0-71.0); NRBC ABSOLUTE 0.00 (0.00-0.02); NRBC PERCENT 0.0 % (0.0-0.2); PLATELET COUNT,PLT 264 K/mm3 (150-400); RED BLOOD CELL COUNT 5.21 M/mm3 (4.10-5.30); WHITE BLOOD CELL COUNT,WBC 11.80 K/mm3 (3.9-11.3)
[2025-06-21] MEDS: Iopamidol 612 MG/ML 100 ML Bottle IVPUSH ONE (23:14)
[2025-06-21] MEDS: Sodium Chloride 0.9% 10 ML Syringe FLUSH PRN (23:14)
[2025-06-21 23:19] LABS: A/G RATIO 1.2 (1-2); ALANINE AMINOTRANSFERASE,ALT 20.0 U/L (14-59); ASPARTATE AMNIOTRANSFERASE,AST 12.0 U/L (15-37); BILIRUBIN TOTAL 0.5 mg/dL (0.2-1.0); BLOOD UREA NITROGEN,BUN 11.0 mg/dL (7-18); CARBON DIOXIDE,CO2 23.0 mEq/L (21-32); CHLORIDE,CL 107.0 mEq/L (98-107); CREATININE 0.9 mg/dL (0.55-1.02); EST CRCL DRUG DOSING (CG) 96.39 mL/min; ESTIMATED GFR 89.0 mL/min (>60); GLUCOSE RANDOM 99.0 mg/dL (70-99); POTASSIUM,K 3.9 mEq/L (3.5-5.1); PROTEIN TOTAL,TP 7.2 g/dl (6.4-8.2); SODIUM,NA 142.0 mEq/L (136-145)
[2025-06-21] MEDS: Ondansetron 4 MG/2 ML SDV IVPUSH ONE (23:31)
[2025-06-22 00:14] LABS: APPEARANCE,URINE CLEAR (Clear); GLUCOSE,URINE NEGATIVE (Negative); OCCULT BLOOD,URINE NEGATIVE (Negative)
[2025-06-22] MEDS ORDERED: diphenhydrAMINE 50 MG/ML SDV IVPUSH ONE (01:12)
[2025-06-22] MEDS: Ketorolac 30 MG/ML SDV IVPUSH ONE (01:26)
[2025-06-22] MEDS: Ondansetron 4 MG/2 ML SDV IVPUSH ONE (02:08)
[2025-06-22 04:00] VITALS: BP 102/67; PULSE 72
== END 2025-06-22 02:15 | disposition home or self-care (01) ==
LOC: JD.ED 22:31
DX: K59.00 Constipation, unspecified (principal); Z88.8 Allergy status to other drugs, medicaments and biological substances; Z79.899 Other long term (current) drug therapy; Z79.84 Long term (current) use of oral hypoglycemic drugs
CPT/HCPCS: 36415; 74177; 76830; 80053; 81003; 83690; 83735; 85025; 96361; 96374; 96375; 96376; 99284; J1171; J1885; J2270; J2405; J7030; Q9967; 99283